=== PATIENT | female | born 1940 | race Caucasian/White ===

== ENCOUNTER → 2019-08-21 15:57 | Outpatient (CLI) | payer MEDICARE, BC, SELFPAY ==
[2019-08-21 18:16] LABS: Free T3, Triiodothyronine Free 2.78 pg/mL (2.77-5.27); Free T4, Direct Thyroxine 1.27 ng/dL (0.78-2.19)
[2019-08-21 18:29] LABS: Thyroid Stimulating Hormone 0.43 uIU/mL (0.47-4.68)
== END ==
PROVIDERS: Visit Provider Nurse Practitioner
DX: E03.9 Hypothyroidism, unspecified (principal); Z79.899 Other long term (current) drug therapy
CPT/HCPCS: 36415; 84439; 84443; 84481

== ENCOUNTER → 2020-04-24 12:25 | Outpatient (CLI) | payer MEDICARE, BC, SELFPAY ==
[2020-04-24 13:41] LABS: Alanine Aminotransferase 20 IU/L (<35); Albumin 4.4 g/dL (3.5-5.0); Albumin Globulin Ratio 1.3 (1.0-2.8); Alkaline Phosphatase 90 U/L (38-126); Aspartate Aminotransferase 26 IU/L (14-36); BUN Creatinine Ratio 14.4 (6-22); Bilirubin Total 0.5 mg/dL (0.2-1.3); Blood Urea Nitrogen 13 mg/dL (7-17); Calcium 10.1 mg/dL (8.4-10.2); Carbon Dioxide 29 mmol/L (22-32); Chloride 103 mmol/L (98-107); Cholesterol 190 mg/dL (140-199); Estimated Glomerular Filt Rate > 60.0 mL/min (>60); Globulin 3.4 g/dL (1.7-4.1); Glucose 95 mg/dL (80-110); HDL Cholesterol 47 mg/dL (40-60); HEMOLYSIS < 15 (0-50); LDL Cholesterol Calculated 110 mg/dL (<100); Potassium 4.4 mmol/L (3.4-5.1); Sodium 140 mmol/L (137-145); Total Protein 7.8 g/dL (6.3-8.2); Triglycerides 163 mg/dL (35-150)
[2020-04-24 14:04] LABS: Free T3, Triiodothyronine Free 2.83 pg/mL (2.77-5.27); Free T4, Direct Thyroxine 1.36 ng/dL (0.78-2.19)
[2020-04-24 14:18] LABS: Thyroid Stimulating Hormone 0.53 uIU/mL (0.47-4.68)
== END ==
PROVIDERS: Referring Provider Nurse Practitioner; Visit Provider Nurse Practitioner
DX: E03.9 Hypothyroidism, unspecified (principal); E66.3 Overweight; E78.5 Hyperlipidemia, unspecified; I10 Essential (primary) hypertension; Z79.899 Other long term (current) drug therapy
CPT/HCPCS: 80053; 80061; 84439; 84443; 84481

== ENCOUNTER → 2020-06-07 10:19 | Outpatient (CLI) | payer MEDICARE, BC, SELFPAY ==
--- NOTE | 2020-06-07 10:21 | DI.MG.S_ITS ---
BILATERAL DIGITAL SCREENING MAMMOGRAM 3D/2D WITH CAD: 06/07/2020 CLINICAL: Routine screening. Family history of breast cancer. Comparison is made to exams dated: 05/05/2018 mammogram, 03/30/2017 mammogram, and 03/12/2016 mammogram - [facility]. There are scattered fibroglandular elements in both breasts. Current study was also evaluated with a Computer Aided Detection (CAD) system. There are grouped fine calcifications in the left breast anterior depth central to the nipple seen on the craniocaudal view only. No other significant masses, calcifications, or other findings are seen in either breast. IMPRESSION: INCOMPLETE: NEEDS ADDITIONAL IMAGING EVALUATION The grouped fine calcifications in the left breast are indeterminate. Spot magnification and additional views are recommended. This exam was interpreted at Station ID: [id number]. NOTE: For mammograms, a report in lay terms will be sent to the patient. Approximately 15% of breast malignancies will not be visualized mammographically. In the management of a palpable breast mass, a negative mammogram must not discourage biopsy of a clinically suspicious lesion. Electronically Signed By: Dottie nicholson/:06/07/2020 12:16:06 letter sent: Additional Imaging Needed ACR BI-RADS Category 0: Incomplete 3340F
== END ==
PROVIDERS: PCP Nurse Practitioner; Referring Provider Nurse Practitioner; Visit Provider Nurse Practitioner
DX: Z12.31 Encounter for screening mammogram for malignant neoplasm of breast (principal); Z80.3 Family history of malignant neoplasm of breast
CPT/HCPCS: 77063; 77067

== ENCOUNTER → 2020-06-13 12:45 | Outpatient (CLI) | payer MEDICARE, BC, SELFPAY | PROVIDERS: PCP Nurse Practitioner; Referring Provider Nurse Practitioner; Visit Provider Nurse Practitioner | DX: E07.9 Disorder of thyroid, unspecified (principal); Z78.0 Asymptomatic menopausal state | CPT/HCPCS: 77080 ==

== ENCOUNTER → 2020-07-03 12:41 | Outpatient (CLI) | payer MEDICARE, BC, SELFPAY ==
--- NOTE | 2020-07-03 12:42 | DI.MG.S_ITS ---
UNILATERAL LEFT DIGITAL DIAGNOSTIC MAMMOGRAM 3D/2D WITH ADDITIONAL VIEWS: 07/03/2020 CLINICAL: Additional evaluation requested from prior study. Comparison is made to exams dated: 06/07/2020 mammogram - [facility], 05/05/2018 mammogram, and 03/30/2017 mammogram - [facility]. There are scattered fibroglandular elements in left breast. There are benign diffuse punctate calcifications in the left breast. No significant masses, calcifications, or other findings are seen in the breast. IMPRESSION: BENIGN There is no mammographic evidence of malignancy. A 1 year screening mammogram is recommended. This exam was interpreted at Station ID: [id number]. NOTE: For mammograms, a report in lay terms will be sent to the patient. Approximately 15% of breast malignancies will not be visualized mammographically. In the management of a palpable breast mass, a negative mammogram must not discourage biopsy of a clinically suspicious lesion. Electronically Signed By: Clark ku/lee:07/03/2020 13:18:36 letter sent: Normal Exam ACR BI-RADS Category 2: Benign Finding(s) 3342F
== END ==
PROVIDERS: PCP Nurse Practitioner; Referring Provider Nurse Practitioner; Visit Provider Nurse Practitioner
DX: R92.8 Other abnormal and inconclusive findings on diagnostic imaging of breast (principal)
CPT/HCPCS: 77065; G0279

== ENCOUNTER → 2021-05-20 14:21 | Outpatient (CLI) | payer MEDICARE, BC, SELFPAY ==
[2021-05-20 15:04] LABS: Creatinine Urine Random 186.3 mg/dL
[2021-05-20 15:08] LABS: Microalbumi Creatinin Ratio Ur 11.2 ug/mg CR (<30); Microalbumin Urine Random 2.1 mg/dL (0-1.6)
[2021-05-20 15:41] LABS: Alanine Aminotransferase 21 IU/L (<35); Albumin 4.1 g/dL (3.5-5.0); Albumin Globulin Ratio 1.5 (1.0-2.8); Alkaline Phosphatase 79 U/L (38-126); Aspartate Aminotransferase 25 IU/L (14-36); BUN Creatinine Ratio 16.1 (6-22); Bilirubin Total 0.5 mg/dL (0.2-1.3); Blood Urea Nitrogen 14 mg/dL (7-17); Calcium 9.7 mg/dL (8.4-10.2); Carbon Dioxide 24 mmol/L (22-32); Chloride 104 mmol/L (98-107); Cholesterol 159 mg/dL (140-199); Estimated Glomerular Filt Rate > 60.0 mL/min (>60); Globulin 2.8 g/dL (1.7-4.1); Glucose 100 mg/dL (80-110); HDL Cholesterol 53 mg/dL (40-60); HEMOLYSIS < 15 (0-50); LDL Cholesterol Calculated 74 mg/dL (<100); Sodium 139 mmol/L (137-145); Total Protein 6.9 g/dL (6.3-8.2); Triglycerides 160 mg/dL (35-150)
[2021-05-20 16:07] LABS: Thyroid Stimulating Hormone 1.87 uIU/mL (0.47-4.68)
== END ==
PROVIDERS: PCP Nurse Practitioner; Referring Provider Nurse Practitioner; Visit Provider Nurse Practitioner
DX: E03.9 Hypothyroidism, unspecified (principal); E78.5 Hyperlipidemia, unspecified; I10 Essential (primary) hypertension; Z79.899 Other long term (current) drug therapy
CPT/HCPCS: 36415; 80053; 80061; 82043; 82570; 84443

== ENCOUNTER → 2021-08-15 14:45 | Outpatient (CLI) | payer MEDICARE, BC, SELFPAY ==
--- NOTE | 2021-08-15 14:47 | DI.MG.S_ITS ---
BILATERAL DIGITAL SCREENING MAMMOGRAM 3D/2D WITH CAD: 08/15/2021 CLINICAL: Routine screening. Family history of breast cancer. Comparison is made to exams dated: 07/03/2020 mammogram, 06/07/2020 mammogram - [facility], and 05/05/2018 mammogram - [facility]. There are scattered fibroglandular elements in both breasts. Current study was also evaluated with a Computer Aided Detection (CAD) system. There are benign diffuse calcifications in the left breast. No significant masses, calcifications, or other findings are seen in either breast. There has been no significant interval change. IMPRESSION: BENIGN There is no mammographic evidence of malignancy. A 1 year screening mammogram is recommended. This exam was interpreted at Station ID: [id number]. NOTE: For mammograms, a report in lay terms will be sent to the patient. Approximately 15% of breast malignancies will not be visualized mammographically. In the management of a palpable breast mass, a negative mammogram must not discourage biopsy of a clinically suspicious lesion. Electronically Signed By: Mark Deras M.D., jr/lee:08/15/2021 15:20:29 letter sent: Normal Exam ACR BI-RADS Category 2: Benign Finding(s) 3342F
== END ==
PROVIDERS: PCP Nurse Practitioner; Referring Provider Nurse Practitioner; Visit Provider Nurse Practitioner
DX: Z12.31 Encounter for screening mammogram for malignant neoplasm of breast (principal)
CPT/HCPCS: 77063; 77067

== ENCOUNTER → 2022-09-18 11:19 | Outpatient (CLI) | payer MEDICARE, BC, SELFPAY ==
--- NOTE | 2022-09-18 11:22 | DI.MG.S_ITS ---
BILATERAL DIGITAL SCREENING MAMMOGRAM 3D/2D WITH CAD: 09/18/2022 CLINICAL: Routine screening. Family history of breast cancer. Comparison is made to exams dated: 08/15/2021 mammogram, 06/07/[address] - [facility], 05/05/2018 mammogram, 03/30/2017 mammogram, and 03/12/2016 mammogram - [facility]. There are scattered areas of fibroglandular density in both breasts (category b / 25%-50% glandular tissue). Current study was also evaluated with a Computer Aided Detection (CAD) system. There are benign diffuse calcifications in the left breast. No significant masses, calcifications, or other findings are seen in either breast. There has been no significant interval change. IMPRESSION: BENIGN There is no mammographic evidence of malignancy. A 1 year screening mammogram is recommended. Based on the Tyrer Cuzick model (a risk assessment model) the patient's lifetime risk is 0.9% and her 10 year risk is 0.0%. According to the ACR, ACS, and NCCN guidelines, an annual breast MRI exam along with mammogram is recommended if the patient's lifetime risk is 20% or greater. This exam was interpreted at Station ID: [id number]. NOTE: For mammograms, a report in lay terms will be sent to the patient. Approximately 15% of breast malignancies will not be visualized mammographically. In the management of a palpable breast mass, a negative mammogram must not discourage biopsy of a clinically suspicious lesion. Electronically Signed By: Johnathan busch/lee:09/18/2022 12:21:34 letter sent: Normal Exam ACR BI-RADS Category 2: Benign Finding(s) 3342F
== END ==
PROVIDERS: PCP Nurse Practitioner; Referring Provider Nurse Practitioner; Visit Provider Nurse Practitioner
DX: Z12.31 Encounter for screening mammogram for malignant neoplasm of breast (principal); Z80.3 Family history of malignant neoplasm of breast
CPT/HCPCS: 77063; 77067

== ENCOUNTER → 2022-12-14 11:05 | Outpatient (CLI) | payer MEDICARE, BC, SELFPAY ==
[2022-12-14 12:00] LABS: Hematocrit 39.7 % (36-46); Mean Corpuscular HGB Conc 32.7 % (30-36); Mean Corpuscular Volume 94.8 fL (80-100); Platelet Count 299 X10^3/uL (150-400); Red Blood Cell Count 4.19 X10^6/uL (4.0-5.2); Red Cell Distribution Width 13.3 % (11.6-14.8); White Blood Cell Count 6.6 X10^3/uL (4.5-11.0)
[2022-12-14 12:01] LABS: Alanine Aminotransferase 20 IU/L (<35); Alkaline Phosphatase 94 U/L (38-126); Aspartate Aminotransferase 22 IU/L (14-36); BUN Creatinine Ratio 19.1 (6-22); Bilirubin Total 0.6 mg/dL (0.2-1.3); Blood Urea Nitrogen 17 mg/dL (7-17); Calcium 9.3 mg/dL (8.4-10.2); Carbon Dioxide 26 mmol/L (22-32); Chloride 103 mmol/L (98-107); Cholesterol 168 mg/dL (140-199); Estimated Glomerular Filt Rate > 60 mL/min (>60); Glucose 89 mg/dL (80-110); HDL Cholesterol 51 mg/dL (40-60); HEMOLYSIS < 15 (0-50); LDL Cholesterol Calculated 95 mg/dL (<100); Potassium 4.3 mmol/L (3.4-5.1); Sodium 137 mmol/L (137-145); Total Protein 7.4 g/dL (6.3-8.2); Triglycerides 112 mg/dL (35-150)
[2022-12-14 12:32] LABS: Thyroid Stimulating Hormone 0.578 uIU/mL (0.47-4.68)
[2022-12-14 12:49] LABS: Vitamin B12 > 1000 pg/mL (239-931)
[2022-12-18 15:48] LABS: Albumin 4.1 g/dL (3.5-5.0); Albumin Globulin Ratio 1.2 (1.0-2.8); Globulin 3.3 g/dL (1.7-4.1)
== END ==
PROVIDERS: PCP Nurse Practitioner; Referring Provider Nurse Practitioner; Visit Provider Nurse Practitioner
DX: E03.9 Hypothyroidism, unspecified (principal); E78.2 Mixed hyperlipidemia; I10 Essential (primary) hypertension; Z79.899 Other long term (current) drug therapy; R53.83 Other fatigue
CPT/HCPCS: 36415; 80053; 80061; 82607; 84443; 85027

== ENCOUNTER → 2022-12-15 13:26 | Outpatient (CLI) | payer MEDICARE, BC, SELFPAY ==
[2022-12-15 16:24] LABS: Creatinine Urine Random 194.8 mg/dL
[2022-12-15 16:26] LABS: Microalbumi Creatinin Ratio Ur 15.4 ug/mg CR (<30)
== END ==
PROVIDERS: PCP Nurse Practitioner; Referring Provider Nurse Practitioner; Visit Provider Nurse Practitioner
DX: I10 Essential (primary) hypertension (principal)
CPT/HCPCS: 82043; 82570

== ENCOUNTER → 2022-12-18 12:45 | Outpatient (CLI) | payer MEDICARE, BC, SELFPAY | PROVIDERS: PCP Nurse Practitioner; Referring Provider Nurse Practitioner; Visit Provider Nurse Practitioner | DX: M85.851 Other specified disorders of bone density and structure, right thigh (principal); M85.852 Other specified disorders of bone density and structure, left thigh; Z13.820 Encounter for screening for osteoporosis; M06.9 Rheumatoid arthritis, unspecified; Z78.0 Asymptomatic menopausal state; Z90.710 Acquired absence of both cervix and uterus; Z92.23 Personal history of estrogen therapy | CPT/HCPCS: 77080 ==

== ENCOUNTER → 2023-10-06 12:49 | Outpatient (CLI) | payer MEDICARE, BC, SELFPAY ==
--- NOTE | 2023-10-06 12:51 | DI.MG.S_ITS ---
BILATERAL DIGITAL SCREENING MAMMOGRAM 3D/2D WITH CAD: 10/06/2023 CLINICAL: Routine screening. Family history of breast cancer. Comparison is made to exams dated: 09/18/2022 mammogram, 08/15/2021 mammogram, 06/07/2020 mammogram - [facility], and 05/05/2018 mammogram - [facility]. There are scattered areas of fibroglandular density in both breasts (category b / 25%-50% glandular tissue). Current study was also evaluated with a Computer Aided Detection (CAD) system. No significant masses, calcifications, or other findings are seen in either breast. There has been no significant interval change. IMPRESSION: NEGATIVE There is no mammographic evidence of malignancy. A 1 year screening mammogram is recommended. Based on the Tyrer Cuzick model (a risk assessment model) the patient's lifetime risk is 0.6% and her 10 year risk is 0.0%. According to the ACR, ACS, and NCCN guidelines, an annual breast MRI exam along with mammogram is recommended if the patient's lifetime risk is 20% or greater. This exam was interpreted at Station ID: [id number]. NOTE: For mammograms, a report in lay terms will be sent to the patient. Approximately 15% of breast malignancies will not be visualized mammographically. In the management of a palpable breast mass, a negative mammogram must not discourage biopsy of a clinically suspicious lesion. Electronically Signed By: Johnathan busch/lee:10/06/2023 13:59:26 letter sent: Normal Exam ACR BI-RADS Category 1: Negative 3341F
== END ==
PROVIDERS: PCP Nurse Practitioner; Referring Provider Nurse Practitioner; Visit Provider Nurse Practitioner
DX: Z12.31 Encounter for screening mammogram for malignant neoplasm of breast (principal); Z80.3 Family history of malignant neoplasm of breast
CPT/HCPCS: 77063; 77067

== ENCOUNTER → 2023-12-17 11:43 | Outpatient (CLI) | payer MEDICARE, BC, SELFPAY ==
[2023-12-17 13:27] LABS: Alanine Aminotransferase 20 IU/L (<35); Albumin 4.1 g/dL (3.5-5.0); Albumin Globulin Ratio 1.4 (1.0-2.8); Alkaline Phosphatase 80 U/L (38-126); Aspartate Aminotransferase 24 IU/L (14-36); BUN Creatinine Ratio 23.2 (6-22); Bilirubin Total 0.6 mg/dL (0.2-1.3); Blood Urea Nitrogen 23 mg/dL (7-17); Calcium 9.9 mg/dL (8.4-10.2); Carbon Dioxide 26 mmol/L (22-32); Chloride 103 mmol/L (98-107); Cholesterol 164 mg/dL (140-199); Estimated Glomerular Filt Rate 57 mL/min (>60); Globulin 2.9 g/dL (1.7-4.1); Glucose 92 mg/dL (80-110); HDL Cholesterol 47 mg/dL (40-60); HEMOLYSIS < 15 (0-50); LDL Cholesterol Calculated 89 mg/dL (<100); Potassium 4.3 mmol/L (3.4-5.1); Sodium 138 mmol/L (137-145); Triglycerides 142 mg/dL (35-150)
[2023-12-17 13:50] LABS: Thyroid Stimulating Hormone 1.61 uIU/mL (0.47-4.68)
== END ==
PROVIDERS: PCP Nurse Practitioner; Referring Provider Nurse Practitioner; Visit Provider Nurse Practitioner
DX: E03.9 Hypothyroidism, unspecified (principal); M85.80 Other specified disorders of bone density and structure, unspecified site; I10 Essential (primary) hypertension; E78.5 Hyperlipidemia, unspecified; Z79.899 Other long term (current) drug therapy
CPT/HCPCS: 36415; 80053; 80061; 84443

== ENCOUNTER → 2023-12-18 09:50 | Outpatient (CLI) | payer MEDICARE, BC, SELFPAY ==
[2023-12-18 12:11] LABS: Creatinine Urine Random 120.2 mg/dL
[2023-12-18 12:15] LABS: Microalbumin Urine Random < 0.6 mg/dL (0-1.6)
== END ==
PROVIDERS: PCP Nurse Practitioner; Referring Provider Nurse Practitioner; Visit Provider Nurse Practitioner
DX: M85.80 Other specified disorders of bone density and structure, unspecified site (principal); E03.9 Hypothyroidism, unspecified; I10 Essential (primary) hypertension; E78.5 Hyperlipidemia, unspecified; Z79.899 Other long term (current) drug therapy
CPT/HCPCS: 82043; 82570

== ENCOUNTER → 2024-12-27 14:00 | Outpatient (CLI) | payer MEDICARE, BC, SELFPAY ==
[2024-12-27 14:35] LABS: Add Manual Diff / Slide Review NO; Basophils Absolute Auto 100 /uL (0-100); Eosinophils Absolute Auto 200 /uL (0-450); Eosinophils Percent Auto 2.8 % (2-4); Hematocrit 37.6 % (36-46); Hemoglobin 12.5 g/dL (12.0-16.0); Lymphocytes Absolute Auto 2300 /uL (1100-4500); Mean Corpuscular HGB Conc 33.3 % (30-36); Mean Corpuscular Volume 93.1 fL (80-100); Monocytes Absolute Auto 800 /uL (0-900); Monocytes Percent Auto 11.3 % (3-14); Neutrophils Absolute Auto 3600 /uL (1500-7000); Neutrophils Percent Auto 51.9 % (50-75); Platelet Count 315 X10^3/uL (150-400); Red Blood Cell Count 4.04 X10^6/uL (4.0-5.2); Red Cell Distribution Width 12.9 % (11.6-14.8); White Blood Cell Count 6.9 X10^3/uL (4.5-11.0)
[2024-12-27 15:19] LABS: BUN Creatinine Ratio 24.1 (6-22); Blood Urea Nitrogen 27 mg/dL (7-17); Calcium 9.8 mg/dL (8.4-10.2); Carbon Dioxide 27 mmol/L (22-32); Chloride 100 mmol/L (98-107); Cholesterol 187 mg/dL (140-199); Estimated Glomerular Filt Rate 48 mL/min (>60); Glucose 95 mg/dL (80-110); HDL Cholesterol 44 mg/dL (40-60); HEMOLYSIS < 15 (0-50); LDL Cholesterol Calculated 103 mg/dL (<100); Potassium 4.8 mmol/L (3.4-5.1); Sodium 136 mmol/L (137-145); Triglycerides 199 mg/dL (35-150)
[2024-12-27 15:54] LABS: TSH w/ Reflex to FT4 1.92 uIU/mL (0.47-4.68)
== END ==
PROVIDERS: PCP Nurse Practitioner Family; Referring Provider Nurse Practitioner Family; Visit Provider Nurse Practitioner Family
DX: E03.9 Hypothyroidism, unspecified (principal); I10 Essential (primary) hypertension; E78.5 Hyperlipidemia, unspecified
CPT/HCPCS: 36415; 80048; 80061; 84443; 85025

== ENCOUNTER 2025-09-26 03:45 | Inpatient (IN) | payer MEDICARE, BC, SELFPAY ==
[2025-09-26 03:53] VITALS: BP 188/73; PULSE 76; RESP 18; TEMP 36.4; O2SAT 97; BMI 29.0
--- NOTE | 2025-09-26 04:16 | ED.ABDPAIN ---
HPI - Abdominal Pain General Chief Complaint: Abdominal Pain Stated Complaint: Abdominal Pain Time Seen by Provider: 09/26/25 03:56 Source: patient and EMS Mode of arrival: EMS History of Present Illness HPI narrative: 85-year-old female who has been dealing some low back bilateral pain that started around midnight and now she is having some centralized abdominal pain along with it. Is not cramping or dull or sharp it just hurts according to the patient. No or other GI symptoms no hematuria no dysuria no melena. Related Data Previous Rx's ?Medication ?Instructions ?Recorded atorvastatin 40 mg tablet See Rx Instructions .Route 01/08/25 .COMPLEX #90 tabs levothyroxine 50 mcg tablet See Rx Instructions .Route 01/08/25 .COMPLEX #90 tabs bisoprolol 2.5 See Rx Instructions .Route 01/15/25 mg-hydrochlorothiazide 6.25 mg .COMPLEX #90 tabs tablet Allergies Allergy/AdvReac Type Severity Reaction Status Date / Time Sulfa (Sulfonamide Allergy Mild Verified 01/18/25 14:00 Antibiotics) Sulfur AdvReac Intermediate Face Uncoded 01/18/25 14:00 swelling, Reaction to med. Review of Systems Review of Systems ROS Unobtainable: All systems reviewed & are unremarkable except as noted in HPI and below Patient History Medical History Osteopenia determined by x-ray Ankle pain (~2016) Mumps Measles History of chicken pox Family history of colon cancer Family history of breast cancer Family history of stroke Family history of hypertension Family history of diabetes mellitus History of uterine fibroid History of hemorrhoids Hypothyroidism Actinic keratitis Hypertension Vitamin D deficiency Cobalamin deficiency Vitamin B-complex deficiency Hypothyroidism Surgical History History of cosmetic surgery (~1991) History of tonsillectomy (~1957) History of hysterectomy (~1997) Family History Father History of heart attack Stroke Mother Stroke Diabetes mellitus Hypertension Hyperlipidemia Sister COPD (chronic obstructive pulmonary disease) Breast cancer in female Daughter Cancer Social History marital status: number of children: 2 household members: children lives independently: Yes caregiver/support person: Yes pets and animals: Yes (Cat-Stormy) education level: other occupational status: other current occupational exposures/hazards: No rik/restorationism: Worship/[employer] special rik needs: No travel history: recent leisure activities: games and reading other: Playing cards seatbelt use: always helmet use: No water heater temp set < 120 deg: Yes working smoke detector in home: Yes carbon monox detector in home: Yes firearms in home: No do you feel safe at home: Yes Smoking Status: Never smoker second hand exposure: No (In the past.) alcohol intake: current substance use type: does not use during the past year weight has: remained stable well-balanced diet: about half the time daily servings fruits/ve-4 caffeine: Yes (2+ drinks per day, 1-2 soda/pop drinks per day) eating out: 1-3 times/week Type(s) of exercise: occasional exercise frequency: 1-2 times per week duration: 45-60 minutes/day additional social history: Travel History: [facility], [place], [place]. Smoking Status: Never smoker Exam Narrative Exam Narrative: General: Patient appears to be in no acute distress, acting appropriately Head: normocephalic, atraumatic, HEENT: Pupils equal round reactive, eyes tracking well, neck supple, no JVD Heart: regular rate and rhythm, no murmurs, rubs, or gallops heard Lungs: clear to auscultation, no adventitious sounds Abdomen: soft , tenderness to palpation around the center of her abdomen. Nondistended, positive bowel sounds Neurological: no focal neurological signs, moving all extremities well, alert and oriented x3, Psych: good judgment ,good insight, mood is normal. back: Pain with palpation around bilateral lower back region. Initial Vital Signs Initial Vital Signs: Vital Signs Temperature 97.5 F L 09/26/25 03:53 Pulse Rate 76 09/26/25 03:53 Respiratory Rate 18 09/26/25 03:53 Blood Pressure 188/73 H 09/26/25 03:53 Pulse Oximetry 97 09/26/25 03:53 Oxygen Delivery Method Room Air 09/26/25 03:53 Course Orders Ordered: ED Orders 09/26/25 03:45 Complete Blood Count AUTO DIFF Stat Comprehensive Metabolic Panel Stat Lipase Stat 09/26/25 04:18 CT abdomen pelvis wo con Stat 09/26/25 04:19 EKG-12 Lead Stat Discontinued Medications Morphine Sulfate (Morphine 2 Mg/Ml Inj) 2 mg IV NOW ONE Stop: 09/26/25 04:17 Morphine Sulfate (Morphine 2 Mg/Ml Inj) 4 mg 0.05 mg/kg (4 mg) IV NOW ONE Stop: 09/26/25 04:23 Morphine Sulfate (Morphine 4 Mg/Ml Inj) 2 mg IV NOW ONE Stop: 09/26/25 04:24 Last Admin: 09/26/25 04:29 Dose: 2 mg Documented By: AN Morphine Sulfate (Morphine 2 Mg/Ml Inj) 2 mg IV NOW ONE Stop: 09/26/25 06:09 Morphine Sulfate (Morphine 2 Mg/Ml Inj) 2 mg IV NOW ONE Stop: 09/26/25 06:15 Morphine Sulfate (Morphine 4 Mg/Ml Inj) 2 mg IV NOW ONE Stop: 09/26/25 06:31 Ondansetron HCl (Ondansetron 4 Mg/2 Ml Inj) 4 mg IV NOW ONE Stop: 09/26/25 04:17 Last Admin: 09/26/25 04:29 Dose: 4 mg Documented By: NA Ondansetron HCl (Ondansetron 4 Mg/2 Ml Inj) 4 mg IV NOW ONE Stop: 09/26/25 06:17 Reevaluation(s) Reevaluation #1: Patient is still a bit uncomfortable after morphine and Zofran given Consultations Consultation #1: General surgery Dr Evans consulted who felt that she could be admitted by the medicine team and consulted. Time: 06:28 Consultation #2: Hospitalist Dr. Watson consulted who will admit the patient Time: 06:28 Vital Signs Vital signs: Vital Signs - 8 hr 09/26/25 03:53 09/26/25 05:04 Temperature 97.5 F L Pulse Rate 76 72 Respiratory Rate 18 15 Blood Pressure 188/73 H 146/62 H Pulse Oximetry 97 97 Oxygen Delivery Method Room Air Room Air MDM - Abdominal Pain Lab Data 09/26/25 03:45 09/26/25 03:45 Labs: Lab Results 09/26/25 Range/Units 03:45 WBC 7.2 (4.5-11.0) X10^3/uL RBC 4.44 (4.0-5.2) X10^6/uL Hgb 13.6 (12.0-16.0) g/dL Hct 41.0 (36-46) % MCV 92.2 (80-100) fL MCH 30.6 (26-34) PG MCHC 33.1 (30-36) % RDW 13.5 (11.6-14.8) % Plt Count 316 (150-400) X10^3/uL Neut % (Auto) 57.0 (50-75) % Lymph % (Auto) 30.4 (25-40) % [place] % (Auto) 9.3 (3-14) % Eos % (Auto) 2.0 (2-4) % Baso % (Auto) 1.3 (0-2) % Neut # (Auto) 4100 (5017-9141) /uL Lymph # (Auto) 2200 (5569-6056) /uL [place] # (Auto) 700 (0-900) /uL Eos # (Auto) 100 (0-450) /uL Baso # (Auto) 100 (0-100) /uL Sodium 136 L (137-145) mmol/L Potassium 3.7 (3.4-5.1) mmol/L Chloride 99 (98-107) mmol/L Carbon Dioxide 27 (22-32) mmol/L BUN 21 H (7-17) mg/dL Creatinine 0.96 (0.52-1.04) mg/dL Estimated GFR 58 L (>60) mL/min BUN/Creatinine Ratio 21.9 (6-22) Glucose 121 H (70-99) mg/dL Calcium 9.2 (8.4-10.2) mg/dL Total Bilirubin 0.4 (0.2-1.3) mg/dL AST 29 (14-36) IU/L ALT 24 (<35) IU/L Alkaline Phosphatase 96 (38-126) U/L Total Protein 7.9 (6.3-8.2) g/dL Albumin 4.6 (3.5-5.0) g/dL Globulin 3.3 (1.7-4.1) g/dL Albumin/Globulin Ratio 1.4 (1.0-2.8) Lipase 124 (23-300) U/L Imaging Data CT scan - abdomen/pelvis: Radiologist's Impression: Dilated fluid filled loops of small bowel throughout the abdomen. Compatible with small bowel enteritis with ileus versus partial distal small-bowel obstruction. Findings may be infectious or inflammatory. However there is suggestion of pneumatosis. MDM Narrative Medical decision making narrative: 85-year-old female who has been having some lower back pain that radiated and eventually centralized abdominal pain that has been worsening in the last 4-5 hours. Has been associated some nausea and vomiting. CT abdomen was compatible with small bowel enteritis with ileus versus partial distal small-bowel obstruction. General surgery consulted who advised to admit the patient through the medicine team and will be consulted. Patient will be observed for any further symptoms or worsening obstruction. No reason for antibiotics at this time as patient has no sign of sepsis or other obvious infectious source. Discharge Plan Departure Patient Disposition: Admitted as Observation Clinical Impression: Partial small bowel obstruction Admit Date/Time: 09/26/25 06:26 Admit Provider: Kj Watson
--- NOTE | 2025-09-26 04:18 | DI.CT.S_ITS ---
[id number] hiatal hernia. Chest: No significant findings. ABDOMEN: Liver: No contour-deforming mass. Gallbladder: No radiopaque gallstones or wall thickening. Biliary ducts: No biliary dilation. Pancreas: No ductal dilation. Spleen: Size is within normal limits. Adrenal Glands: No adrenal nodules. Kidneys and Ureters: No hydronephrosis. No contour-deforming mass. Stomach and Bowel: Jejunal loops are borderline dilated measuring up to 3.0 cm in diameter. Reference image 58 of series 2. Possible pneumatosis. More likely, there is near complete filling of the bowel loops with fluid with minimal residual air present along the wall of the small bowel loops. Distal jejunal or proximal ileal loops measure up to 2.9 cm in diameter. More distally, the ileum has a normal caliber. Consider enteritis with ileus. Consider partial small bowel obstruction. Peritoneum: No abnormal intraperitoneal fluid. No free air. Ventral Wall: No significant hernia. Abdominal Nodes: No retroperitoneal or mesenteric adenopathy by size criteria. Vessels: Aorta and inferior vena cava are normal in size. PELVIS: Pelvic Organs: Uterus is surgically absent. No adnexal masses.. Bladder: Unremarkable. Pelvic Nodes: No enlarged lymph nodes. Miscellaneous: No inguinal hernias are seen. Bones: No aggressive osseous abnormality. IMPRESSION: 1. There is an acute process involving the small bowel. Consider enteritis with mild ileus. Consider possible earlier partial small bowel obstruction. There is a question of proximal small bowel pneumatosis. However, this is felt unlikely to be the case. Recommend clinical correlation and imaging follow-up. 2. Akgk-ss-dbtchcha hiatal hernia. 3. Remote hysterectomy. Comment: Final report is concordant with preliminary interpretation provided by [facility]. Dictated by: Sorin Larios M.D. on 09/26/2025 at 7:58 Approved by: Sorin Larios M.D. on 09/26/2025 at 8:04
--- NOTE | 2025-09-26 04:28 | EKG_ITS ---
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
[2025-09-26] MEDS: MORPHINE 4 MG/ML INJ 2 MG IV ×2 (04:29→06:44)
[2025-09-26] MEDS: ONDANSETRON 4 MG/2 ML INJ IV ×3 (04:29→13:24)
[2025-09-26 04:31] LABS: Add Manual Diff / Slide Review NO; Hematocrit 41.0 % (36-46); Hemoglobin 13.6 g/dL (12.0-16.0); Lymphocytes Absolute Auto 2200 /uL (1100-4500); Mean Corpuscular HGB Conc 33.1 % (30-36); Mean Corpuscular Hemoglobin 30.6 PG (26-34); Mean Corpuscular Volume 92.2 fL (80-100); Platelet Count 316 X10^3/uL (150-400)
[2025-09-26 04:38] LABS: Alanine Aminotransferase 24 IU/L (<35); Albumin 4.6 g/dL (3.5-5.0); Albumin Globulin Ratio 1.4 (1.0-2.8); Alkaline Phosphatase 96 U/L (38-126); Blood Urea Nitrogen 21 mg/dL (7-17); Calcium 9.2 mg/dL (8.4-10.2); Carbon Dioxide 27 mmol/L (22-32); Chloride 99 mmol/L (98-107); Estimated Glomerular Filt Rate 58 mL/min (>60); Globulin 3.3 g/dL (1.7-4.1); Glucose 121 mg/dL (70-99); HEMOLYSIS < 15 (0-50); Lipase 124 U/L (23-300); Potassium 3.7 mmol/L (3.4-5.1); Sodium 136 mmol/L (137-145); Total Protein 7.9 g/dL (6.3-8.2)
[2025-09-26 05:04] VITALS: BP 146/62; PULSE 72; RESP 15; O2SAT 97
--- NOTE | 2025-09-26 06:30 | PM.HP.1 ---
History of Present Illness History of Present Illness Chief complaint: Abdominal Pain Narrative: 85F with PMH of HTN and hypothyroidism comes to ED with bilateral LBP since MN and central abdominal pain that is not sharp or crampy. There has been no dysuria, melena, diarrhea, constipation, nausea, vomiting, fever, chills, sweats, dyspnea. or cough. Labs were unremarkable. CT showed possible small bowel obstruction vs ileus but official radiology read is pending. ED attending spoke with on-call surgeon who will see patient but did not think NG tube placement was necessary at this time. [facility] Medical History Osteopenia determined by x-ray Ankle pain (~2016) Mumps Measles History of chicken pox Family history of colon cancer Family history of breast cancer Family history of stroke Family history of hypertension Family history of diabetes mellitus History of uterine fibroid History of hemorrhoids Hypothyroidism Actinic keratitis Hypertension Vitamin D deficiency Cobalamin deficiency Vitamin B-complex deficiency Hypothyroidism Surgical History History of cosmetic surgery (~1991) History of tonsillectomy (~1957) History of hysterectomy (~1997) Family History Father History of heart attack Stroke Mother Stroke Diabetes mellitus Hypertension Hyperlipidemia Sister COPD (chronic obstructive pulmonary disease) Breast cancer in female Daughter Cancer Social History marital status: number of children: 2 household members: children lives independently: Yes caregiver/support person: Yes pets and animals: Yes (Cat-Stormy) education level: other occupational status: other current occupational exposures/hazards: No rik/sabianist: Presybeterian/Jew special rik needs: No travel history: recent leisure activities: games and reading other: Playing cards seatbelt use: always helmet use: No water heater temp set < 120 deg: Yes working smoke detector in home: Yes carbon monox detector in home: Yes firearms in home: No do you feel safe at home: Yes Smoking Status: Never smoker second hand exposure: No (In the past.) alcohol intake: current substance use type: does not use during the past year weight has: remained stable well-balanced diet: about half the time daily servings fruits/ve-4 caffeine: Yes (2+ drinks per day, 1-2 soda/pop drinks per day) eating out: 1-3 times/week Type(s) of exercise: occasional exercise frequency: 1-2 times per week duration: 45-60 minutes/day additional social history: Travel History: [facility] States- [place], [place], [place]. Meds Home Medications and Allergies Home Medications ?Medication ?Instructions ?Recorded ?Confirmed ?Type atorvastatin 40 mg tablet See Rx Instructions .Route 01/08/25 01/18/25 Rx .COMPLEX #90 tabs levothyroxine 50 mcg tablet See Rx Instructions .Route 01/08/25 01/18/25 Rx .COMPLEX #90 tabs bisoprolol 2.5 See Rx Instructions .Route 01/15/25 01/18/25 Rx mg-hydrochlorothiazide 6.25 mg .COMPLEX #90 tabs tablet Allergies Allergy/AdvReac Type Severity Reaction Status Date / Time Sulfa (Sulfonamide Allergy Mild Verified 01/18/25 14:00 Antibiotics) Sulfur AdvReac Intermediate Face Uncoded 01/18/25 14:00 swelling, Reaction to med. Review of Systems Review of Systems Narrative: As per HPI. Rest of 10-system review negative. Exam Vital Signs (past 8 hours): - 09/26/25 03:53 09/26/25 05:04 Temperature 97.5 F L Pulse Rate 76 72 Respiratory Rate 18 15 Blood Pressure 188/73 H 146/62 H Pulse Oximetry 97 97 Oxygen Delivery Method Room Air Room Air Oxygen Delivery Method Room Air Narrative Exam Narrative: To be done by day hospitalist. Objective Imaging CT scan - abdomen: My impression: sbo vs ileus Labs 09/26/25 03:45 09/26/25 03:45 Labs: Laboratory Results - last 24 hr 09/26/25 03:45 WBC 7.2 RBC 4.44 Hgb 13.6 Hct 41.0 MCV 92.2 MCH 30.6 MCHC 33.1 RDW 13.5 Plt Count 316 Neut % (Auto) 57.0 Lymph % (Auto) 30.4 [place] % (Auto) 9.3 Eos % (Auto) 2.0 Baso % (Auto) 1.3 Neut # (Auto) 4100 Lymph # (Auto) 2200 [place] # (Auto) 700 Eos # (Auto) 100 Baso # (Auto) 100 Sodium 136 L Potassium 3.7 Chloride 99 Carbon Dioxide 27 BUN 21 H Creatinine 0.96 Estimated GFR 58 L BUN/Creatinine Ratio 21.9 Glucose 121 H Calcium 9.2 Total Bilirubin 0.4 AST 29 ALT 24 Alkaline Phosphatase 96 Total Protein 7.9 Albumin 4.6 Globulin 3.3 Albumin/Globulin Ratio 1.4 Lipase 124 Assessment & Plan Assessment and plan (1) Ileus, unspecified: Status: Acute Assessment & Plan narrative: 85F with <6 hour h/o bilateral low back pain and central abdominal pain 1. Small bowel obstruction vs ileus without N/V/D/C, POA 2. bilateral low back/flank pain without dysuria, POA 3. HTN 4. Hypothyroidism Plan: 1. Admit to observation 2. Surgeon to see 3. NPO, IV fluids, Hold off on NG tube for now per reported recommendation by surgery 4. check urinalysis 5. BMP, CBC, Mg at noon 6. Hold oral medications for now 7. APAP, Dilaudid, Zofran for pain and nausea Code: full Exam to be done by day hospitalist - communicated directly to day hospitalist through hospital-provided communication means. Time-Based Coding :: [TOTAL MINUTES] spent with patient and on the chart (including review of chart, obtaining history, exam, reviewing outside data, placing orders, documenting exam and treatment plan, and counseling patient) on [DATE].
--- NOTE | 2025-09-26 06:32 | PM.CN.IH.1 ---
History of Present Illness Consult details Date Patient Seen: 09/26/25 Time Patient Seen: 06:32 Chief complaint: Abdominal Pain Reason for consult: SBO vs ileus Requesting provider: Yoni Alcaraz Narrative: Surgery consult requested by ED. Patient being admitted to hospitalist service. 85yo F c/o abd pain, back pain. CT demonstrates ileus vs SBO. Review of CT images demonstrates mild small bowel dilation diffusely more consistent with ileus. Patient's daughter has stomach bug and patient now having similar symptoms, abd pain, vomiting. Denies blood in vomit or stool. Daily BM, denies constipation. Denies fever. WBC normal. +FH for colon cancer in her daughter, hasn't had colonoscopy in 20 years. Originally from [place]. Meds Home Medications and Allergies Home Medications ?Medication ?Instructions ?Recorded ?Confirmed ?Type atorvastatin 40 mg tablet See Rx Instructions .Route 01/08/25 01/18/25 Rx .COMPLEX #90 tabs levothyroxine 50 mcg tablet See Rx Instructions .Route 01/08/25 01/18/25 Rx .COMPLEX #90 tabs bisoprolol 2.5 See Rx Instructions .Route 01/15/25 01/18/25 Rx mg-hydrochlorothiazide 6.25 mg .COMPLEX #90 tabs tablet Allergies Allergy/AdvReac Type Severity Reaction Status Date / Time Sulfa (Sulfonamide Allergy Mild Verified 01/18/25 14:00 Antibiotics) Sulfur AdvReac Intermediate Face Uncoded 01/18/25 14:00 swelling, Reaction to med. Exam Vital Signs (past 8 hours): - 09/26/25 03:53 09/26/25 05:04 Temperature 97.5 F L Pulse Rate 76 72 Respiratory Rate 18 15 Blood Pressure 188/73 H 146/62 H Pulse Oximetry 97 97 Oxygen Delivery Method Room Air Room Air Oxygen Delivery Method Room Air Narrative Exam Narrative: Const General: uncomfortable Orientation: alert and oriented x3 Resp Effort & Inspection: normal respiratory effort and able to speak in complete sentences Cardio Rate: regular rate GI Palpation: soft, diffusely tender, non-peritoneal Extrem General: no pedal edema and no calf tenderness Objective Labs 09/26/25 03:45 09/26/25 03:45 Labs: Laboratory Results - last 24 hr 09/26/25 03:45 WBC 7.2 RBC 4.44 Hgb 13.6 Hct 41.0 MCV 92.2 MCH 30.6 MCHC 33.1 RDW 13.5 Plt Count 316 Neut % (Auto) 57.0 Lymph % (Auto) 30.4 [place] % (Auto) 9.3 Eos % (Auto) 2.0 Baso % (Auto) 1.3 Neut # (Auto) 4100 Lymph # (Auto) 2200 [place] # (Auto) 700 Eos # (Auto) 100 Baso # (Auto) 100 Sodium 136 L Potassium 3.7 Chloride 99 Carbon Dioxide 27 BUN 21 H Creatinine 0.96 Estimated GFR 58 L BUN/Creatinine Ratio 21.9 Glucose 121 H Calcium 9.2 Total Bilirubin 0.4 AST 29 ALT 24 Alkaline Phosphatase 96 Total Protein 7.9 Albumin 4.6 Globulin 3.3 Albumin/Globulin Ratio 1.4 Lipase 124 PFSH Medical History Osteopenia determined by x-ray Ankle pain (~2016) Mumps Measles History of chicken pox Family history of colon cancer Family history of breast cancer Family history of stroke Family history of hypertension Family history of diabetes mellitus History of uterine fibroid History of hemorrhoids Hypothyroidism Actinic keratitis Hypertension Vitamin D deficiency Cobalamin deficiency Vitamin B-complex deficiency Hypothyroidism Surgical History History of cosmetic surgery (~1991) History of tonsillectomy (~1957) History of hysterectomy (~1997) Family History Father History of heart attack Stroke Mother Stroke Diabetes mellitus Hypertension Hyperlipidemia Sister COPD (chronic obstructive pulmonary disease) Breast cancer in female Daughter Cancer Social History marital status: number of children: 2 household members: children lives independently: Yes caregiver/support person: Yes pets and animals: Yes (Cat-Stormy) education level: other occupational status: other current occupational exposures/hazards: No rik/yarsani: Jewish/Jewish special rik needs: No travel history: recent leisure activities: games and reading other: Playing cards Safety seatbelt use: always helmet use: No water heater temp set < 120 deg: Yes working smoke detector in home: Yes carbon monox detector in home: Yes firearms in home: No do you feel safe at home: Yes Tobacco & Substance Use Smoking Status: Never smoker second hand exposure: No (In the past.) alcohol intake: current substance use type: does not use Diet and Exercise during the past year weight has: remained stable well-balanced diet: about half the time daily servings fruits/ve-4 caffeine: Yes (2+ drinks per day, 1-2 soda/pop drinks per day) eating out: 1-3 times/week Type(s) of exercise: occasional exercise frequency: 1-2 times per week duration: 45-60 minutes/day Additional Social History additional social history: Travel History: [facility] [place], [place], [place]. Assessment & Plan Assessment and plan (1) Abdominal pain: Qualifiers: Abdominal location: generalized Qualified Code(s): R10.84 - Generalized abdominal pain Status: Acute Plan Abd pain, vomiting, unclear etiology Clinical picture c/w gastroenteritis CT images more consistent with ileus, not SBO Daughter had similar symptoms c/w viral gastroenteritis She needs to have screening colonoscopy after recovery, +FH Time-Based Coding :: [TOTAL MINUTES] spent with patient and on the chart (including review of chart, obtaining history, exam, reviewing outside data, placing orders, documenting exam and treatment plan, and counseling patient) on [DATE]. PROFEE Charge Codes Inpatient or Observation consultation: 88229
[2025-09-26 06:56] VITALS: BP 168/71; PULSE 70; RESP 14; O2SAT 96
[2025-09-26 07:55] VITALS: BP 132/78; PULSE 78; RESP 16; TEMP 36.2; O2SAT 98
[2025-09-26 08:30] VITALS: BMI 29.0
[2025-09-26] MEDS: SODIUM CHLORIDE 0.9% 1,000 ML 60 ML IV (08:39)
[2025-09-26 12:30] LABS: Add Manual Diff / Slide Review NO; Hematocrit 42.2 % (36-46); Hemoglobin 13.8 g/dL (12.0-16.0); Lymphocytes Absolute Auto 800 /uL (1100-4500); Mean Corpuscular HGB Conc 32.8 % (30-36); Mean Corpuscular Hemoglobin 30.3 PG (26-34); Mean Corpuscular Volume 92.6 fL (80-100); Platelet Count 321 X10^3/uL (150-400)
[2025-09-26 12:46] LABS: Blood Urea Nitrogen 21 mg/dL (7-17); Calcium 9.0 mg/dL (8.4-10.2); Carbon Dioxide 20 mmol/L (22-32); Chloride 102 mmol/L (98-107); Estimated Glomerular Filt Rate > 60 mL/min (>60); Glucose 150 mg/dL (70-99); HEMOLYSIS 87 (0-50); Magnesium 2.0 mg/dL (1.6-2.3); Potassium 4.2 mmol/L (3.4-5.1); Sodium 136 mmol/L (137-145)
[2025-09-26] MEDS: ACETAMINOPHEN 325 MG TABLET 650 MG PO (20:26)
[2025-09-26 21:43] VITALS: BP 128/81; PULSE 85; RESP 18; TEMP 37.1; O2SAT 96
[2025-09-27] MEDS: SODIUM CHLORIDE 0.9% 1,000 ML 60 ML IV ×2 (01:25→19:42)
[2025-09-27 05:14] VITALS: BP 132/67; PULSE 79; RESP 18; TEMP 37.1; O2SAT 95
--- NOTE | 2025-09-27 07:18 | P.PN_ITS ---
Subjective Subjective Date Patient Seen: 09/27/25 Time Patient Seen: 07:18 Interval history: Feels much better No n/v Small appetite Exam Vital Signs (past 8 hours): - 09/27/25 05:14 Temperature 98.7 F Pulse Rate 79 Respiratory Rate 18 Blood Pressure 132/67 Pulse Oximetry 95 Oxygen Delivery Method Room Air Oxygen Flow Rate 0 Const General: comfortable GI Other: ABD: soft, non-peritoneal exam Objective Labs 09/26/25 12:22 09/26/25 12:22 Labs: Laboratory Results - last 24 hr 09/26/25 12:22 WBC 16.0 H D RBC 4.55 Hgb 13.8 Hct 42.2 MCV 92.6 MCH 30.3 MCHC 32.8 RDW 13.4 Plt Count 321 Neut % (Auto) 90.7 H D Lymph % (Auto) 4.7 L D [place] % (Auto) 4.4 Eos % (Auto) 0.0 L Baso % (Auto) 0.2 Neut # (Auto) 09471 H Lymph # (Auto) 800 L [place] # (Auto) 700 Eos # (Auto) 0 Baso # (Auto) 0 Sodium 136 L Potassium 4.2 Chloride 102 Carbon Dioxide 20 L BUN 21 H Creatinine 0.71 Estimated GFR > 60 BUN/Creatinine Ratio 29.6 H Glucose 150 H Calcium 9.0 Magnesium 2.0 PFSH Medical History Osteopenia determined by x-ray Ankle pain (~2016) Mumps Measles History of chicken pox Family history of colon cancer Family history of breast cancer Family history of stroke Family history of hypertension Family history of diabetes mellitus History of uterine fibroid History of hemorrhoids Hypothyroidism Actinic keratitis Hypertension Vitamin D deficiency Cobalamin deficiency Vitamin B-complex deficiency Hypothyroidism Surgical History History of cosmetic surgery (~1991) History of tonsillectomy (~1957) History of hysterectomy (~1997) Family History Father History of heart attack Stroke Mother Stroke Diabetes mellitus Hypertension Hyperlipidemia Sister COPD (chronic obstructive pulmonary disease) Breast cancer in female Daughter Cancer Social History marital status: number of children: 2 household members: children lives independently: Yes caregiver/support person: Yes pets and animals: Yes (Cat-Stormy) education level: other occupational status: other current occupational exposures/hazards: No rik/jainism: Hindu/Gnosticist special rik needs: No travel history: recent leisure activities: games and reading other: Playing cards seatbelt use: always helmet use: No water heater temp set < 120 deg: Yes working smoke detector in home: Yes carbon monox detector in home: Yes firearms in home: No do you feel safe at home: Yes Smoking Status: Never smoker second hand exposure: No (In the past.) alcohol intake: current substance use type: does not use during the past year weight has: remained stable well-balanced diet: about half the time daily servings fruits/ve-4 caffeine: Yes (2+ drinks per day, 1-2 soda/pop drinks per day) eating out: 1-3 times/week Type(s) of exercise: occasional exercise frequency: 1-2 times per week duration: 45-60 minutes/day additional social history: Travel History: [facility], [place], [place]. Assessment & Plan Assessment and plan (1) Ileus, unspecified: Status: Acute Plan Clinical ileus, ?gastroenteritis Clinically improved Advance diet Time-Based Coding :: [TOTAL MINUTES] spent with patient and on the chart (including review of chart, obtaining history, exam, reviewing outside data, placing orders, documenting exam and treatment plan, and counseling patient) on [DATE]. Quality VTE Deep Vein Thrombosis/Pulmonary Embolism Present on Admission: No PROFEE Tower Director Document charge(s): Yes Charge Codes Subsequent inpatient/observation care: [id number]
[2025-09-27 08:00] VITALS: BP 140/74; PULSE 84; RESP 16; TEMP 37.1; O2SAT 94
[2025-09-27] MEDS: ONDANSETRON 4 MG/2 ML INJ IV (09:30)
--- NOTE | 2025-09-27 12:48 | PC.NURSE ---
Day note: Patient awake, alert and pleasantly cooperative. Unable to tolerate Clear Liquid Diet, continue nausea and emeis x 3. Zofran IV PRN admin without relief. Notified Dr. Hernandez and requested a different antiemetic. Abdomen soft, tender only to touch, and mildly distended. Active BS. No c/o pain. BM 2 days ago. Voiding. Up to BSC. Call light within reach.
--- NOTE | 2025-09-27 15:09 | P.PN_ITS ---
Subjective Subjective Date Patient Seen: 09/27/25 Interval history: Chief complaint: Abdominal pain nausea vomiting secondary to ileus with sick contacts History of present illness: 09/26: 85-year-old female whose daughter with sick contact but nausea vomiting abdominal pain presents to the emergency room with nausea vomiting and abdominal pain herself. Workup in the emergency department significant for dilated loops of small bowel consistent with ileus. Emergency provider consulted surgery to render an opinion felt that this was ileus and not a bowel obstruction. Patient admitted for ileus with dehydration secondary to nausea and vomiting and inability to take liquids. Findings in the emergency department significant for imaging demonstrating ileus Hospital course: 09/27: Patient is somewhat better able to tolerate liquids at this time still requiring antiemetics Review of systems: No fever chills rigors No chest pain palpitations or shortness for breath No paresthesia paresis No loss of consciousness Physical exam: Very pleasant elderly female obviously uncomfortable HEENT unremarkable No labored respirations Abdomen very slightly tender soft nondistended bowel sounds present Extremities no edema Assessment and plan: Ileus with sick contacts suspect infectious agent * Continue IV fluids supportive care symptom management * Continue to advance diet as tolerated DVT prophylaxis * Not indicated patient is ambulatory Code status * Full code Disposition: * Due to extended period of parenteral supportive care we will make inpatient anticipate 24 hours more of hospitalization Time based billing: * 35 minutes were involved in evaluation of the face including [id number] evaluation physical examination review of records review of objective laboratory and imaging findings Exam Vital Signs (past 8 hours): - 09/27/25 08:00 Temperature 98.8 F Pulse Rate 84 Respiratory Rate 16 Blood Pressure 140/74 Pulse Oximetry 94 Oxygen Flow Rate 0 Oxygen Delivery Method Room Air Oxygen Flow Rate 0 Objective Labs 09/26/25 12:22 09/26/25 12:22 [facility] Medical History Osteopenia determined by x-ray Ankle pain (~2016) Mumps Measles History of chicken pox Family history of colon cancer Family history of breast cancer Family history of stroke Family history of hypertension Family history of diabetes mellitus History of uterine fibroid History of hemorrhoids Hypothyroidism Actinic keratitis Hypertension Vitamin D deficiency Cobalamin deficiency Vitamin B-complex deficiency Hypothyroidism Surgical History History of cosmetic surgery (~1991) History of tonsillectomy (~1957) History of hysterectomy (~1997) Family History Father History of heart attack Stroke Mother Stroke Diabetes mellitus Hypertension Hyperlipidemia Sister COPD (chronic obstructive pulmonary disease) Breast cancer in female Daughter Cancer Social History marital status: number of children: 2 household members: children lives independently: Yes caregiver/support person: Yes pets and animals: Yes (Cat-Stormy) education level: other occupational status: other current occupational exposures/hazards: No rik/rastafari: Quaker/Christianity special rik needs: No travel history: recent leisure activities: games and reading other: Playing cards seatbelt use: always helmet use: No water heater temp set < 120 deg: Yes working smoke detector in home: Yes carbon monox detector in home: Yes firearms in home: No do you feel safe at home: Yes Smoking Status: Never smoker second hand exposure: No (In the past.) alcohol intake: current substance use type: does not use during the past year weight has: remained stable well-balanced diet: about half the time daily servings fruits/ve-4 caffeine: Yes (2+ drinks per day, 1-2 soda/pop drinks per day) eating out: 1-3 times/week Type(s) of exercise: occasional exercise frequency: 1-2 times per week duration: 45-60 minutes/day additional social history: Travel History: [facility] [place] [place], [place], [place]. Assessment & Plan Time-Based Coding :: [TOTAL MINUTES] spent with patient and on the chart (including review of chart, obtaining history, exam, reviewing outside data, placing orders, documenting exam and treatment plan, and counseling patient) on [DATE]. Quality VTE Deep Vein Thrombosis/Pulmonary Embolism Present on Admission: No
[2025-09-27] MEDS: METOCLOPRAMIDE HCL 5 MG TABLET PO ×2 (17:16→20:22)
[2025-09-27 19:00] VITALS: O2SAT 93
--- NOTE | 2025-09-27 20:09 | PC.NURSE ---
20:09 called lab to confirm they had received unine that was sent [id number]. crime lab technician mynor yes they have it looked like someone put it in frig. he will run it now
[2025-09-27] MEDS: ACETAMINOPHEN 325 MG TABLET 650 MG PO (20:21)
--- NOTE | 2025-09-27 20:25 | DI.RAD.S_ITS ---
PROCEDURE: XR KUB INDICATIONS: SBO TECHNIQUE: One view of the abdomen acquired. COMPARISON: [facility], CT, CT ABDOMEN PELVIS WO CON, 09/26/2025, 4:29. FINDINGS: Surgical changes and devices: None. Bowel: Significant dilatation of multiple small bowel loops, no significant amount of gas in the colon. Soft tissues: No suspicious abdominal calcifications. Visualized solid organ contours appear normal in size. Bones: No suspicious bony lesions. IMPRESSION: Small bowel dilatation appears more prominent compared to the topogram of previous CT, suggestive of evolving distal small bowel obstruction. Dictated by: Marques Yancey M.D. on 09/27/2025 at 21:11 Approved by: Marques Yancey M.D. on 09/27/2025 at 21:12
[2025-09-27 20:26] LABS: Appearance Urine UA SL CLOUDY; Bilirubin Urine UA NEGATIVE (NEGATIVE); Color Urine UA YELLOW; Glucose Urine UA NEGATIVE (Negative); Ketones Urine UA NEGATIVE (NEGATIVE); Leukocyte Esterase Urine UA NEGATIVE (NEGATIVE); Nitrite Urine UA POSITIVE (Negative); Occult Blood Urine UA 1+ (Negative); Protein Urine UA NEGATIVE (Negative); Specific Gravity Urine UA 1.025 (1.000-1.035); Urobilinogen Urine UA 0.2 E.U./dL (0.2)
[2025-09-27 20:27] LABS: pH Urine UA 6.0 (4.5-8.0)
[2025-09-27 20:36] LABS: Culture Indicated Urine Specimen Cultured
[2025-09-27 20:40] VITALS: BP 154/79; PULSE 87
[2025-09-27] MEDS: SODIUM CHLORIDE 0.9% 1,000 ML 100 ML IV (20:41)
[2025-09-27 20:58] LABS: Add Manual Diff / Slide Review NO; Hematocrit 40.5 % (36-46); Hemoglobin 13.2 g/dL (12.0-16.0); Lymphocytes Absolute Auto 1600 /uL (1100-4500); Mean Corpuscular HGB Conc 32.6 % (30-36); Mean Corpuscular Hemoglobin 30.6 PG (26-34); Mean Corpuscular Volume 93.7 fL (80-100); Platelet Count 289 X10^3/uL (150-400)
[2025-09-27 21:09] LABS: Blood Urea Nitrogen 32 mg/dL (7-17); Calcium 8.6 mg/dL (8.4-10.2); Carbon Dioxide 25 mmol/L (22-32); Chloride 103 mmol/L (98-107); Estimated Glomerular Filt Rate > 60 mL/min (>60); Glucose 104 mg/dL (70-99); HEMOLYSIS 48 (0-50); Potassium 4.5 mmol/L (3.4-5.1); Sodium 136 mmol/L (137-145)
[2025-09-27 21:51] VITALS: TEMP 37.9
[2025-09-27 22:21] VITALS: BP 140/85; PULSE 85; RESP 14; TEMP 37.9; O2SAT 93
[2025-09-28] VITALS (8 sets, daily range): BP systolic 138–172; BP diastolic 77–87; PULSE 79–91; RESP 16; TEMP 36.3–38; O2SAT 92–98
--- NOTE | 2025-09-28 | DI.RAD.S_ITS ---
PROCEDURE: XR GASTROGRAFIN CHALLENGE COMPARISON: None. INDICATIONS: SBO FINDINGS: 4 hour films demonstrate contrast throughout the stomach small bowel and some contrast in the colon which suggests partial small bowel obstruction versus severe ileus with dilated small bowel in the mid abdomen measuring up to 4.2 cm diameter. As contrast did pass into the colon , there is no complete obstruction. No gross free gas. IMPRESSION: No gross radiographic evidence of complete obstruction. Partial obstruction or severe ileus could give this appearance. Dictated by: Zen Cano M.D. on 09/28/2025 at 20:36 Approved by: Zen Cano M.D. on 09/28/2025 at 20:39
[2025-09-28] MEDS: METOCLOPRAMIDE 10 MG/2 ML INJ IV ×2 (00:05→17:46)
--- NOTE | 2025-09-28 05:12 | PC.NURSE ---
Pt has been vomiting, 550mls of brown colored emesis..IV Reglan given and PO order discontinued. IV ABx commenced. Fever has subsided from 100.2 to 98.4. IV NS @ 100ml in progress. Nursing management continued.
[2025-09-28] MEDS: LEVOTHYROXINE 50 MCG TABLET PO (06:16)
--- NOTE | 2025-09-28 06:34 | PC.NURSE ---
Pt is A&O, VS within normal range. Vomited 100mls of light brown fluid. Has not passed urine, encouraged to use the commode and she refused. I offered to do a bladder scan and pt verbalized that she refused.Family informed
[2025-09-28] MEDS: SODIUM CHLORIDE 0.9% 1,000 ML 100 ML IV (06:45)
[2025-09-28 07:03] LABS: Alanine Aminotransferase 24 IU/L (<35); Albumin 4.0 g/dL (3.5-5.0); Albumin Globulin Ratio 1.4 (1.0-2.8); Alkaline Phosphatase 77 U/L (38-126); Blood Urea Nitrogen 34 mg/dL (7-17); Calcium 8.8 mg/dL (8.4-10.2); Carbon Dioxide 28 mmol/L (22-32); Chloride 103 mmol/L (98-107); Estimated Glomerular Filt Rate > 60 mL/min (>60); Globulin 2.9 g/dL (1.7-4.1); Glucose 128 mg/dL (70-99); HEMOLYSIS 31 (0-50); Potassium 3.8 mmol/L (3.4-5.1); Sodium 136 mmol/L (137-145); Total Protein 6.9 g/dL (6.3-8.2)
--- NOTE | 2025-09-28 08:28 | DI.RAD.S_ITS ---
PROCEDURE: XR CHEST 1V INDICATIONS: NG tube placement confirmation TECHNIQUE: One view of the chest was acquired. COMPARISON: [facility], CT, CT ABDOMEN PELVIS WO CON, 09/26/2025, 4:29. [facility], CR, XR KUB, 09/27/2025, 20:42. FINDINGS: Surgical changes and devices: NG tube projects to the distal body of the stomach or beyond. Lungs and pleura: Probable right basilar pleural fluid and right basilar atelectasis. Mediastinum: Mediastinal contours appear normal. Heart size is normal. Bones and chest wall: No suspicious bony lesions. Overlying soft tissues appear unremarkable. IMPRESSION: Satisfactory NG tube placement. Dictated by: Sorin Larios M.D. on 09/28/2025 at 8:56 Approved by: Sorin Larios M.D. on 09/28/2025 at 8:57
--- NOTE | 2025-09-28 08:30 | PC.NURSE ---
NG tube place by CLAUDIA Manriquez, pt tolerated very well. Ordered portable chest xray for placement confirmation; xray performed, confirmed placement. NG tube 56cm at L nare. NG set to low intermittent suction. Green liquid output.
[2025-09-28] MEDS: SODIUM CHLORIDE 0.9% 500 ML 1000 ML IV ×2 (08:35→20:04)
--- NOTE | 2025-09-28 08:41 | CM.DANOTE ---
Initial DCP Assessment Visit Note Reviewed EMR and team rounds for pt's medical status and updates. Met with pt/dtr at the bedside to introduce self and role, pt was found to be alert/oriented, very ill-appearing w/facial grimacing. Pt lives modified independent at baseline with her dtr in her own apt here in [facility]. She has 2-local dtrs, Tory works here at and is very supportive and involved in her mother's care and needs. One of the dtrs will transport pt home at time of d/c, unless she will need SNF rehab for further recovery. Payor: Medicare PCP: Cari Rea Pt is a 85 year-old F who presented to the ED with c/o bilateral lower back pain and abdominal pain for the last several hours. CT abd/pelvis showed small bowel enteritis and an ileus. Surgery was consulted, and the plan was made to make her NPO, and start with conservative measures, bowel rest, symptom management, and no surgical intervention at this time. Yesterday, she was working on advancing her diet, however she vomited most of the day. Plan is for new Surgical consultation today, NG tube placed, and pt is now NPO in case of the need for surgery. DCP will continue to follow for any further evolving needs for d/c. Discharge Planning/Care Management Advanced directive, confirm from FAMILY Start: 09/26/25 08:34 Freq: Q24H Status: Active Protocol: Document 09/26/25 08:34 CEW (Rec: 09/26/25 18:53 CEW [id number]) Advance Directive, confirm on record Time 08:30 Person contacted pt Copy received No Document 09/27/25 08:34 ESV (Rec: 09/27/25 09:23 ESV [id number]) Advance Directive, confirm on record Time 08:30 Person contacted pt Copy received No CM Discharge Assessment Start: 09/26/25 07:01 Freq: Status: Active Protocol: Document 09/28/25 08:12 DPL (Rec: 09/28/25 08:14 DPL [id number]) Discharge Planning Assessment Assigned Discharge SAMAN Jimenez Estimator Project Manager Insurance Medicare Advance Directives? Yes Advance Directives No on File History Provided By Patient,Family Member,Medical Record Has Patient been No admitted in last 30 days? Prior Living House Arrangements Household Members children Type of Relies on Others transporation used prior to admit Independent with ADL No: modified independent with a walker and assistance 's Is patient alert and Yes oriented? Needs Assistance Managing Medications,Home Chores / Shopping With Caregiver for No Another DME Already Rented / Bath Bench,Elevated Toilet Seat,FWW / Walker Owned Comment Pending Barriers to No Discharge Discharge Plan Home Additional Comment Pending final therapy recs. Whiteboard Updated Yes in Patient Room with name and ext. # of [place] Worker Review Status In Process Please Provide Date 09/28/25 Initial DC Assessment Was Performed
[2025-09-28] MEDS: SODIUM CHLORIDE 0.9% 1,000 ML 150 ML IV ×2 (10:55→17:41)
--- NOTE | 2025-09-28 11:51 | PM.PN.IH.1 ---
Subjective Subjective Date Patient Seen: 09/28/25 Time Patient Seen: 11:00 Interval history: This anibal 85-year-old female, admitted September 26, 2025 for potential partial small-bowel obstruction versus ileus. The patient was noted to have a significant UTI and is currently receiving treatment. Her daughter is at the bedside. The patient reports that she had only a brief hiatus from vomiting and vomited most of yesterday until a nasogastric tube was placed. 650 cc of enteric content was returned. The patient reports now that the nausea and vomiting have completely abated and that she ?loves the NG tube?. She states she is not nauseated and has no abdominal pain at this time. However, she also notes that she is not passing flatus. She had a small bowel movement yesterday. Her previous bowel movement was on the . She reports no shortness of breath, chest pain, abdominal pain, or malaise. She does note that she is extremely sleepy, however, states she was up most of the night with nausea and vomiting. A KUB following nasogastric tube placement revealed dilated loops of small bowel particularly in the ileum. At this time she is without complaints. Exam Vital Signs (past 8 hours): - 09/28/25 08:00 Temperature 98.2 F Pulse Rate 79 Respiratory Rate 16 Blood Pressure 154/86 H Pulse Oximetry 94 Oxygen Flow Rate 0 Oxygen Delivery Method Room Air Oxygen Flow Rate 0 Narrative Exam Narrative: AVSS Sleeping soundly on arrival, however, easily awakened and very alert. Respirations symmetrical, however, diminished bilaterally. No wheezes or rales noted. Slightly rhonchorous. Suggestive of bilateral developing atelectasis. Regular rate and rhythm without murmur Abdomen is soft, nondistended, and nontender. Bowel sounds are only appreciated in the right lower quadrant, and these are scanned. No peritoneal signs. Moves all extremities x4 Objective Labs 09/27/25 20:50 09/28/25 06:12 Labs: Laboratory Results - last 24 hr 09/27/25 09/27/25 09/28/25 17:15 20:50 06:12 WBC 12.3 H RBC 4.32 Hgb 13.2 Hct 40.5 MCV 93.7 MCH 30.6 MCHC 32.6 RDW 13.9 Plt Count 289 Neut % (Auto) 77.4 H Lymph % (Auto) 13.2 L [place] % (Auto) 8.4 Eos % (Auto) 0.2 L Baso % (Auto) 0.8 Neut # (Auto) 9500 H Lymph # (Auto) 1600 [place] # (Auto) 1000 H Eos # (Auto) 0 Baso # (Auto) 100 Sodium 136 L 136 L Potassium 4.5 3.8 Chloride 103 103 Carbon Dioxide 25 28 BUN 32 H 34 H Creatinine 0.79 0.78 Estimated GFR > 60 > 60 BUN/Creatinine Ratio 40.5 H 43.6 H Glucose 104 H 128 H Calcium 8.6 8.8 Total Bilirubin 0.6 AST 35 ALT 24 Alkaline Phosphatase 77 Total Protein 6.9 Albumin 4.0 Globulin 2.9 Albumin/Globulin Ratio 1.4 Urine Color Yellow Urine Appearance Sl cloudy Urine pH 6.0 Ur Specific [place] 1.025 Urine Protein Negative Urine Glucose (UA) Negative Urine Ketones Negative Urine Occult Blood 1+ H Urine Nitrate Positive H Urine Bilirubin Negative Urine Urobilinogen 0.2 Ur Leukocyte Esterase Negative Urine RBC 0-1/hpf Urine WBC 5-10/hpf H Ur Squamous Epith Cells 0-1 /hpf Urine Bacteria Many (>30) H Ur Culture Indicated? Specimen cultured Micro UA Comment Vol Urine Centrifuged 10ml (spun) [facility] Medical History Osteopenia determined by x-ray Ankle pain (~2016) Mumps Measles History of chicken pox Family history of colon cancer Family history of breast cancer Family history of stroke Family history of hypertension Family history of diabetes mellitus History of uterine fibroid History of hemorrhoids Hypothyroidism Actinic keratitis Hypertension Vitamin D deficiency Cobalamin deficiency Vitamin B-complex deficiency Hypothyroidism Surgical History History of cosmetic surgery (~1991) History of tonsillectomy (~1957) History of hysterectomy (~1997) Family History Father History of heart attack Stroke Mother Stroke Diabetes mellitus Hypertension Hyperlipidemia Sister COPD (chronic obstructive pulmonary disease) Breast cancer in female Daughter Cancer Social History marital status: number of children: 2 household members: children lives independently: Yes caregiver/support person: Yes pets and animals: Yes (Cat-Stormy) education level: other occupational status: other current occupational exposures/hazards: No rik/catholic: Oriental Orthodox/Confucianism special rik needs: No travel history: recent leisure activities: games and reading other: Playing cards seatbelt use: always helmet use: No water heater temp set < 120 deg: Yes working smoke detector in home: Yes carbon monox detector in home: Yes firearms in home: No do you feel safe at home: Yes Smoking Status: Never smoker second hand exposure: No (In the past.) alcohol intake: current substance use type: does not use during the past year weight has: remained stable well-balanced diet: about half the time daily servings fruits/ve-4 caffeine: Yes (2+ drinks per day, 1-2 soda/pop drinks per day) eating out: 1-3 times/week Type(s) of exercise: occasional exercise frequency: 1-2 times per week duration: 45-60 minutes/day additional social history: Travel History: [facility]- [place], [place], [place]. Assessment & Plan Assessment & Plan narrative: Small bowel obstruction versus ileus 85-year-old female with partial small bowel obstruction versus ileus. I have spoken at length with the patient and her daughter. Her clinical appearance is improving. I explained to her the need for the NG tube. We discussed a potential Gastrografin challenge. The patient is in agreement. Given that she has very scant bowel sounds, I tend to lean more toward ileus related to her UTI. Her leukocytosis which was 16,000 yesterday has improved to 12,000. This is after the initiation of antibiotics. I explained to the patient that it is critically important that she not be lying in bed, but will be assisted to sitting up in a chair. We will attempt to arrange a PT consult. I have also recommended the use of an incentive spirometer. The patient has agreed to wear a SCD's. We will keep the blinds open and the lights on in order to prevent owning. I will repeat the KUB and if there is no improvement we will again consider a Gastrografin challenge. It is also of course, critically important that we monitor urine output. Her daughter is a nurse and has been very diligent in doing so. To her knowledge the patient has only voided 550 cc since yesterday morning. A small fluid bolus might be prudent. I will discuss my findings with the hospitalist. Time-Based Coding :: [TOTAL MINUTES] spent with patient and on the chart (including review of chart, obtaining history, exam, reviewing outside data, placing orders, documenting exam and treatment plan, and counseling patient) on [DATE]. Quality VTE Deep Vein Thrombosis/Pulmonary Embolism Present on Admission: No IH PROFEE Tie Hacker Document charge(s): Yes Charge Codes Subsequent inpatient/observation care: 13611
--- NOTE | 2025-09-28 13:00 | DI.RAD.S_ITS ---
PROCEDURE: XR ABDOMEN MIN 2V INDICATIONS: Dehydration, ileus TECHNIQUE: 2 views of the abdomen were acquired. COMPARISON: [facility], CR, XR KUB, 09/27/2025, 20:42. FINDINGS: Surgical changes and devices: Gastric tube tip and side port project over the stomach. Bowel: Similar gaseous distension of the small bowel. Soft tissues: No masses; visualized solid organ contours appear normal in size. No suspicious abdominal calcifications. Bones: No suspicious bony abnormalities. IMPRESSION: Similar gaseous distension of the small bowel. No frances pneumoperitoneum. Dictated by: Stanley Gilliam M.D. on 09/28/2025 at 13:48 Approved by: Stanley Gilliam M.D. on 09/28/2025 at 13:48
--- NOTE | 2025-09-28 15:47 | PT-IP ANOTE ---
Checked on pt x 2. pt asleep. daughter in room and wants pt to sleep. checked back on pt after 1 1/2 hours pt still asleep but woke up and refused PT. stated that she will do it tomorrow.
[2025-09-28] MEDS: ACETAMINOPHEN IV 1,000 MG/100 ML VIAL 400 MG IV (17:33)
[2025-09-28 18:28] LABS: Add Manual Diff / Slide Review NO; Hematocrit 40.8 % (36-46); Hemoglobin 13.6 g/dL (12.0-16.0); Lymphocytes Absolute Auto 1200 /uL (1100-4500); Mean Corpuscular HGB Conc 33.4 % (30-36); Mean Corpuscular Hemoglobin 31.1 PG (26-34); Mean Corpuscular Volume 93.1 fL (80-100); Platelet Count 320 X10^3/uL (150-400)
--- NOTE | 2025-09-28 18:57 | P.PN_ITS ---
Subjective Subjective Date Patient Seen: 09/28/25 Interval history: Chief complaint: Abdominal pain nausea vomiting secondary to ileus with sick contacts History of present illness: 09/26: 85-year-old female whose daughter with sick contact but nausea vomiting abdominal pain presents to the emergency room with nausea vomiting and abdominal pain herself. Workup in the emergency department significant for dilated loops of small bowel consistent with ileus. Emergency provider consulted surgery to render an opinion felt that this was ileus and not a bowel obstruction. Patient admitted for ileus with dehydration secondary to nausea and vomiting and inability to take liquids. Findings in the emergency department significant for imaging demonstrating ileus Hospital course: 09/27: Patient is somewhat better able to tolerate liquids at this time still requiring antiemetics 09/28: Patient developed worsening emesis overnight with increased localized distention of small bowel on KUB NG tube was placed urinalysis and blood cultures obtained. Unfortunately patient vomited after Gastrografin challenge followed by development of low-grade fevers Review of systems: Low-grade temperature Physical exam: Very pleasant elderly female obviously uncomfortable HEENT unremarkable No labored respirations Abdomen very slightly tender soft nondistended bowel sounds present Extremities no edema Assessment and plan: Ileus with with increasing nausea and vomiting * Continue IV fluids supportive care symptom management * Nasogastric suction * Escalate antibiotics to Zosyn for suspicion of aspiration * Chest x-ray Suspected urinary tract infection: * Urine analysis and blood culture * Should be covered with Zosyn DVT prophylaxis * Not indicated patient is ambulatory Code status * Full code Disposition: * Inpatient until above conditions resolve Time based billing: * 35 minutes were involved in evaluation of the face including [id number] evaluation physical examination review of records review of objective laboratory and imaging findings Exam Vital Signs (past 8 hours): - 09/28/25 15:30 09/28/25 15:47 09/28/25 17:33 Temperature 97.4 F L 99.6 F 100.4 F H Pulse Rate 79 Respiratory Rate 16 Blood Pressure 158/77 H Pulse Oximetry 94 Oxygen Flow Rate 0 Oxygen Delivery Method Room Air Oxygen Flow Rate 0 Objective Labs 09/28/25 18:23 09/28/25 06:12 Labs: Laboratory Results - last 24 hr 09/27/25 09/27/25 09/28/25 17:15 20:50 06:12 WBC 12.3 H RBC 4.32 Hgb 13.2 Hct 40.5 MCV 93.7 MCH 30.6 MCHC 32.6 RDW 13.9 Plt Count 289 Neut % (Auto) 77.4 H Lymph % (Auto) 13.2 L [place] % (Auto) 8.4 Eos % (Auto) 0.2 L Baso % (Auto) 0.8 Neut # (Auto) 9500 H Lymph # (Auto) 1600 [place] # (Auto) 1000 H Eos # (Auto) 0 Baso # (Auto) 100 Sodium 136 L 136 L Potassium 4.5 3.8 Chloride 103 103 Carbon Dioxide 25 28 BUN 32 H 34 H Creatinine 0.79 0.78 Estimated GFR > 60 > 60 BUN/Creatinine Ratio 40.5 H 43.6 H Glucose 104 H 128 H Calcium 8.6 8.8 Total Bilirubin 0.6 AST 35 ALT 24 Alkaline Phosphatase 77 Total Protein 6.9 Albumin 4.0 Globulin 2.9 Albumin/Globulin Ratio 1.4 Urine Color Yellow Urine Appearance Sl cloudy Urine pH 6.0 Ur Specific [place] 1.025 Urine Protein Negative Urine Glucose (UA) Negative Urine Ketones Negative Urine Occult Blood 1+ H Urine Nitrate Positive H Urine Bilirubin Negative Urine Urobilinogen 0.2 Ur Leukocyte Esterase Negative Urine RBC 0-1/hpf Urine WBC 5-10/hpf H Ur Squamous Epith Cells 0-1 /hpf Ur Transition Epith Cell Not Reportable Ur Renal Epithelial Cell Not Reportable Calcium Oxalate Crystal Not Reportable Uric Acid Crystals Not Reportable Triple Phos Crystals Not Reportable Other Crystals Not Reportable Amorphous Sediment Not Reportable Urine Bacteria Many (>30) H Hyaline Casts Not Reportable Granular Casts Not Reportable RBC Casts Not Reportable WBC Casts Not Reportable Other Casts Not Reportable Urine Mucus Not Reportable Urine Trichomonas Not Reportable Urine Yeast Not Reportable Urine Sperm Not Reportable Ur Culture Indicated? Specimen cultured Micro UA Comment Vol Urine Centrifuged 10ml (spun) 09/28/25 18:23 WBC 9.7 RBC 4.38 Hgb 13.6 Hct 40.8 MCV 93.1 MCH 31.1 MCHC 33.4 RDW 13.5 Plt Count 320 Neut % (Auto) 77.8 H Lymph % (Auto) 12.2 L [place] % (Auto) 9.4 Eos % (Auto) 0.3 L Baso % (Auto) 0.3 Neut # (Auto) 7600 H Lymph # (Auto) 1200 [place] # (Auto) 900 Eos # (Auto) 0 Baso # (Auto) 0 Sodium Potassium Chloride Carbon Dioxide BUN Creatinine Estimated GFR BUN/Creatinine Ratio Glucose Calcium Total Bilirubin AST ALT Alkaline Phosphatase Total Protein Albumin Globulin Albumin/Globulin Ratio Urine Color Urine Appearance Urine pH Ur Specific [place] Urine Protein Urine Glucose (UA) Urine Ketones Urine Occult Blood Urine Nitrate Urine Bilirubin Urine Urobilinogen Ur Leukocyte Esterase Urine RBC Urine WBC Ur Squamous Epith Cells Ur Transition Epith Cell Ur Renal Epithelial Cell Calcium Oxalate Crystal Uric Acid Crystals Triple Phos Crystals Other Crystals Amorphous Sediment Urine Bacteria Hyaline Casts Granular Casts RBC Casts WBC Casts Other Casts Urine Mucus Urine Trichomonas Urine Yeast Urine Sperm Ur Culture Indicated? Micro UA Comment Vol Urine Centrifuged [facility] Medical History Osteopenia determined by x-ray Ankle pain (~2016) Mumps Measles History of chicken pox Family history of colon cancer Family history of breast cancer Family history of stroke Family history of hypertension Family history of diabetes mellitus History of uterine fibroid History of hemorrhoids Hypothyroidism Actinic keratitis Hypertension Vitamin D deficiency Cobalamin deficiency Vitamin B-complex deficiency Hypothyroidism Surgical History History of cosmetic surgery (~1991) History of tonsillectomy (~1957) History of hysterectomy (~1997) Family History Father History of heart attack Stroke Mother Stroke Diabetes mellitus Hypertension Hyperlipidemia Sister COPD (chronic obstructive pulmonary disease) Breast cancer in female Daughter Cancer Social History marital status: number of children: 2 household members: children lives independently: Yes caregiver/support person: Yes pets and animals: Yes (Cat-Stormy) education level: other occupational status: other current occupational exposures/hazards: No rik/presybeterian: Rastafarian/Mandaen special rik needs: No travel history: recent leisure activities: games and reading other: Playing cards seatbelt use: always helmet use: No water heater temp set < 120 deg: Yes working smoke detector in home: Yes carbon monox detector in home: Yes firearms in home: No do you feel safe at home: Yes Smoking Status: Never smoker second hand exposure: No (In the past.) alcohol intake: current substance use type: does not use during the past year weight has: remained stable well-balanced diet: about half the time daily servings fruits/ve-4 caffeine: Yes (2+ drinks per day, 1-2 soda/pop drinks per day) eating out: 1-3 times/week Type(s) of exercise: occasional exercise frequency: 1-2 times per week duration: 45-60 minutes/day additional social history: Travel History: [facility]- [place], [place], [place]. Assessment & Plan Time-Based Coding :: [TOTAL MINUTES] spent with patient and on the chart (including review of chart, obtaining history, exam, reviewing outside data, placing orders, documenting exam and treatment plan, and counseling patient) on [DATE]. Quality VTE Deep Vein Thrombosis/Pulmonary Embolism Present on Admission: No
--- NOTE | 2025-09-28 19:08 | DI.RAD.S_ITS ---
PROCEDURE: XR CHEST 1V INDICATIONS: Suspected aspiration TECHNIQUE: One view of the chest was acquired. COMPARISON: [facility], CR, XR CHEST 1V, 09/28/2025, 8:24. FINDINGS: Nasogastric/orogastric tube extends into the left upper abdomen off the inferior margin of the image. Mild bibasilar consolidations partially obscuring the diaphragm commonly represents a combination of small pleural effusions, atelectatic changes, alveolar opacification, pneumonia or other process , mildly decreased compared to the prior exam. Mildly enlarged cardiopericardial silhouette and prominent eliezer, pulmonary vessels unchanged. No pneumothorax. Remainder of the exam unchanged IMPRESSION: Mild improvement in bibasilar consolidations as discussed above. Remainder of the exam unchanged. Continued follow-up suggested. If symptoms persist or worsen, CT chest could be performed. Dictated by: Zen Cano M.D. on 09/28/2025 at 20:09 Approved by: Zen Cano M.D. on 09/28/2025 at 20:12
--- NOTE | 2025-09-28 19:42 | PC.NURSE ---
Called [facility] to inquire as to status of 174 post-gastrograffin x-ray. [facility] stated that order was not put in as a stat read. Confirmed via orders screen that MD Hernandez did put order in as stat. Called back down to [facility]; DI's screen still did not state stat. [facility] kindly inquired further and was able to change the status in their system to stat; awaiting radiologist report. Informed MD Kamara and CLAUDIA Hagen.
[2025-09-28] MEDS: ONDANSETRON 4 MG/2 ML INJ IV (20:12)
[2025-09-28] MEDS: PIPERACILLIN/TAZO 4.5 GM in SODIUM CHLORIDE 0.9% 100 ML IV (20:41)
[2025-09-29] VITALS (7 sets, daily range): BP systolic 148–160; BP diastolic 73–90; PULSE 73–102; RESP 16–19; TEMP 36.2–36.8; O2SAT 93–97
[2025-09-29] MEDS: SODIUM CHLORIDE 0.9% 1,000 ML 150 ML IV ×3 (02:12→18:25)
[2025-09-29] MEDS: PIPERACILLIN/TAZO 3.375 GM in SODIUM CHLORIDE 0.9% 100 ML IV ×3 (02:18→18:05)
--- NOTE | 2025-09-29 06:00 | DI.RAD.S_ITS ---
PROCEDURE: XR KUB INDICATIONS: Ileus TECHNIQUE: One view of the abdomen acquired. COMPARISON: [facility], , XR KUB, 09/27/2025, 20:42. FINDINGS: Surgical changes and devices: None. Bowel: Gaseous distension of the small bowel measures up to 3.4 cm. Enteric contrast in the colon. Nasogastric tube in the stomach. Soft tissues: No suspicious abdominal calcifications. Visualized solid organ contours appear normal in size. Bones: No suspicious bony lesions. IMPRESSION: Dilated small bowel consistent with ileus or obstruction. Note: This final report is concordant with the preliminary after-hours interpretation provided by [facility] Approved by: Blane Dickerson M.D. on 09/29/2025 at 8:27
--- NOTE | 2025-09-29 07:23 | P.PN_ITS ---
Subjective Subjective Date Patient Seen: 09/29/25 Interval history: Chief complaint: Abdominal pain nausea vomiting secondary to ileus with aspiration pneumonia History of present illness: 09/26: 85-year-old female whose daughter with sick contact but nausea vomiting abdominal pain presents to the emergency room with nausea vomiting and abdominal pain herself. Workup in the emergency department significant for dilated loops of small bowel consistent with ileus. Emergency provider consulted surgery to render an opinion felt that this was ileus and not a bowel obstruction. Patient admitted for ileus with dehydration secondary to nausea and vomiting and inability to take liquids. Findings in the emergency department significant for imaging demonstrating ileus Hospital course: 09/27: Patient is somewhat better able to tolerate liquids at this time still requiring antiemetics 09/28: Patient developed worsening emesis overnight with increased localized distention of small bowel on KUB NG tube was placed urinalysis and blood cultures obtained. Unfortunately patient vomited after Gastrografin challenge followed by development of low-grade fevers chest x-ray showed a right lower lobe infiltrate improved with incentive spirometry and ambulation as outlined by surgery service ceftriaxone escalated to Zosyn in the evening IV fluids have been continuing boluses urine output 2680 overnight 09/29: Patient feeling better appears more asking if she can drink something did have emesis last night large liquid bowel movement Chest x-ray shows interval improvement of the right lower lobe and right middle lobe infiltrates white blood cell count has de-escalated from 16 down to 12.3 down to 9.7 urine output 24 hours 1200 cc and 2000 cc of gastric drainage Review of systems: No further fevers chills Physical exam: Very pleasant elderly female obviously uncomfortable HEENT unremarkable No labored respirations Right middle lobe and right posterior basilar crackles Abdomen very slightly tender soft nondistended bowel sounds present Extremities no edema Assessment and plan: Ileus with with increasing nausea and vomiting * Continue IV fluids supportive care symptom management * Nasogastric suction * Escalated antibiotics to Zosyn for suspicion of aspiration * Chest x-ray shows interval improvement of right lower lobe infiltrate Suspected urinary tract infection: * Urine culture preliminary Gram-negative rods * and blood culture no growth 24 hours * Should be covered with Zosyn DVT prophylaxis * Not indicated patient is ambulatory Code status * Full code Disposition: * Inpatient until above conditions resolve anticipate 2-3 more days possible discharge Tuesday 10/02 Time based billing: * 35 minutes were involved in evaluation of the face including [id number]-temb evaluation physical examination review of records review of objective laboratory and imaging findings Exam Vital Signs (past 8 hours): - 09/29/25 03:00 Temperature 97.8 F Pulse Rate 102 H Respiratory Rate 16 Blood Pressure 152/90 H Pulse Oximetry 93 Oxygen Flow Rate 0 Oxygen Delivery Method Room Air Oxygen Flow Rate 0 Objective Labs 09/28/25 18:23 09/28/25 06:12 Labs: Laboratory Results - last 24 hr 09/27/25 09/28/25 17:15 18:23 WBC 9.7 RBC 4.38 Hgb 13.6 Hct 40.8 MCV 93.1 MCH 31.1 MCHC 33.4 RDW 13.5 Plt Count 320 Neut % (Auto) 77.8 H Lymph % (Auto) 12.2 L [place] % (Auto) 9.4 Eos % (Auto) 0.3 L Baso % (Auto) 0.3 Neut # (Auto) 7600 H Lymph # (Auto) 1200 [place] # (Auto) 900 Eos # (Auto) 0 Baso # (Auto) 0 Urine Color Yellow Urine Appearance Sl cloudy Urine pH 6.0 Ur Specific [place] 1.025 Urine Protein Negative Urine Glucose (UA) Negative Urine Ketones Negative Urine Occult Blood 1+ H Urine Nitrate Positive H Urine Bilirubin Negative Urine Urobilinogen 0.2 Ur Leukocyte Esterase Negative Urine RBC 0-1/hpf Urine WBC 5-10/hpf H Ur Squamous Epith Cells 0-1 /hpf Ur Transition Epith Cell Not Reportable Ur Renal Epithelial Cell Not Reportable Calcium Oxalate Crystal Not Reportable Uric Acid Crystals Not Reportable Triple Phos Crystals Not Reportable Other Crystals Not Reportable Amorphous Sediment Not Reportable Urine Bacteria Many (>30) H Hyaline Casts Not Reportable Granular Casts Not Reportable RBC Casts Not Reportable WBC Casts Not Reportable Other Casts Not Reportable Urine Mucus Not Reportable Urine Trichomonas Not Reportable Urine Yeast Not Reportable Urine Sperm Not Reportable Ur Culture Indicated? Specimen cultured Micro UA Comment Vol Urine Centrifuged 10ml (spun) [facility] Medical History Osteopenia determined by x-ray Ankle pain (~2016) Mumps Measles History of chicken pox Family history of colon cancer Family history of breast cancer Family history of stroke Family history of hypertension Family history of diabetes mellitus History of uterine fibroid History of hemorrhoids Hypothyroidism Actinic keratitis Hypertension Vitamin D deficiency Cobalamin deficiency Vitamin B-complex deficiency Hypothyroidism Surgical History History of cosmetic surgery (~1991) History of tonsillectomy (~1957) History of hysterectomy (~1997) Family History Father History of heart attack Stroke Mother Stroke Diabetes mellitus Hypertension Hyperlipidemia Sister COPD (chronic obstructive pulmonary disease) Breast cancer in female Daughter Cancer Social History marital status: number of children: 2 household members: children lives independently: Yes caregiver/support person: Yes pets and animals: Yes (Cat-Stormy) education level: other occupational status: other current occupational exposures/hazards: No rik/shinto: Restorationism/Confucianism special rik needs: No travel history: recent leisure activities: games and reading other: Playing cards seatbelt use: always helmet use: No water heater temp set < 120 deg: Yes working smoke detector in home: Yes carbon monox detector in home: Yes firearms in home: No do you feel safe at home: Yes Smoking Status: Never smoker second hand exposure: No (In the past.) alcohol intake: current substance use type: does not use during the past year weight has: remained stable well-balanced diet: about half the time daily servings fruits/ve-4 caffeine: Yes (2+ drinks per day, 1-2 soda/pop drinks per day) eating out: 1-3 times/week Type(s) of exercise: occasional exercise frequency: 1-2 times per week duration: 45-60 minutes/day additional social history: Travel History: [facility]- [place], [place], [place]. Assessment & Plan Time-Based Coding :: [TOTAL MINUTES] spent with patient and on the chart (including review of chart, obtaining history, exam, reviewing outside data, placing orders, documenting exam and treatment plan, and counseling patient) on [DATE]. Quality VTE Deep Vein Thrombosis/Pulmonary Embolism Present on Admission: No
--- NOTE | 2025-09-29 10:25 | PT.IIE ---
Current Diagnoses Ileus, unspecified (09/26/25) Generalized abdominal pain (09/26/25) Surgical History (Last Reviewed 09/26/25 @ 06:30 by Kj Watson MD) History of cosmetic surgery (~1991) History of hysterectomy (~1997) History of tonsillectomy (~1957) Medical History (Last Reviewed 09/26/25 @ 06:30 by Kj Watson MD) Actinic keratitis Ankle pain (~2016) Cobalamin deficiency Family history of breast cancer Family history of colon cancer Family history of diabetes mellitus Family history of hypertension Family history of stroke History of chicken pox History of hemorrhoids History of uterine fibroid Hypertension Hypothyroidism Hypothyroidism Measles Mumps Osteopenia determined by x-ray Vitamin B-complex deficiency Vitamin D deficiency Physical Therapy Inpatient Evaluation/Re-Eval M1 PT/OT-IP Prior Functional Status Start: 09/29/25 12:24 Freq: NEEDED Status: Active Protocol: Document 09/29/25 10:25 AB (Rec: 09/29/25 12:37 AB Desktop) Medical Review Prior Functional Status Medical History Yes Reviewed Communication able to make needs known Mobility and Gait PLOF and home setup provided by pt's daughter: stated that pt was modified independent with all mobilities and ambulation using a 4WW indoors and uses a SPC for outdoor mobility but occasionally ambulates without AD Social History Household Members children Living Arrangements Apartment/Condo Number of Floors ( One Floor Floors) Number of Stairs To elevator to get to her condo Enter/Railing? Home Environment Standard Height Toilet,Walk in Shower Home Equipment Four Wheel Walker,Straight Cane,Shower Seat with Backrest,Hand Held Shower,Grab Bars Near Toilet,Grab Bars In Shower Additional Social pt lives with her daughter who works : may not be History Comment available to assist pt M2 PT-IP Current Condition Start: 09/29/25 12:24 Freq: NEEDED Status: Active Protocol: Document 09/29/25 10:25 AB (Rec: 09/29/25 12:37 AB Desktop) Physical Therapy Current Condition Current Condition Evaluation Date 09/29/25 Treatment Diagnosis SBO; UTI; difficulty in walking Onset Date 09/26/25 M3 PT-IP Subjective Start: 09/29/25 12:24 Freq: NEEDED Status: Active Protocol: Document 09/29/25 10:25 AB (Rec: 09/29/25 12:37 AB Desktop) Subjective Physical Therapy Visit Type Type Initial Evaluation Visit Start Time 10:25 Visit Stop Time 11:00 Number of STOCK PREPARER Visits 0 Physical Therapy Visit Comments Patient Comments agreeable to do PT M4 PT-IP Mobility and Gait Start: 09/29/25 12:24 Freq: NEEDED Status: Active Protocol: Document 09/29/25 10:25 AB (Rec: 09/29/25 12:37 AB Desktop) PT-Bed Mobility Assessment Supine to Sit Supine to Sit Standby Assistance,Head of Bed Elevated,Bedrails PT-Transfer Assessment Sit to and From Stand Sit to and from Minimal Assistance,1 Person Assistance,Use of Upper Stand Extremities Equipment Transfer Assistive Gait Belt,Front Wheeled Walker Device Orthotic/Prosthetic No Devices or Brace: Transfers Transfer Destination Chair Transfer Technique ambulated Transfer Ability Level of Assist Minimal Assistance,1 Person Assistance,Use of Upper Extremities Comments Mobility Comments pt in bed and agreeable to do PT. PLOF and home setup obtained from pt's daughter. BP in supine: 180/80 O2 sat: 95% and PA 70. pt completed supine to sit SBA and cues. able to sit on EOB SBA. sit to stand min A and cues. pt ambulated in room using FWW min A and cues ~ 20 ft. presents with unsteady gait with increase bilateral LE ER and ankle inversion R> L. increase unsteadiness midway with ambulation. pt sat on the chair. positioned on the chair. call light and table placed within reach. Gait Assessment Gait Gait Assistance Minimum Assistance Required: Distance (Feet) 20 Able to Maintain Yes Weight Bearing Status During Gait Assistive Devices Assistive Device Gait Belt,Front Wheeled Walker Orthotic/Prosthetic No Devices or Brace: Gait Deviations General Gait Pattern Antalgic,Decreased Stride Length,Decreased Feet Clearance Factors Limiting Gait Function Factors Limiting Decreased Activity Tolerance,Decreased Strength, Gait Function Difficulty Following Directions,Limited Range of Motion ,Pain,Poor Balance,Poor Safety Awareness PT-Balance Assessment Sitting Balance and Reactions Static Sitting Good Balance Ability Dynamic Sitting Fair Balance Ability Standing Balance and Reactions Static Standing Fair Balance Ability Dynamic Standing Fair Balance Ability Device Used FWW M5 PT-IP Objective Assessments Start: 09/29/25 12:24 Freq: NEEDED Status: Active Protocol: Document 09/29/25 10:25 AB (Rec: 09/29/25 12:37 AB Desktop) Orientation Orientation/Cognition Level of Alertness Alert Orientation Name,Place,Situation Language Function Hard of Hearing Ability Safety Awareness Decreased Safety Awareness Memory Description No Deficits Noted Gross Range of Motion Lower Extremity ROM Assessment Within Functional Limits Strength Lower Extremity Strength Hip 4-/5 Knee 4-/5 Muscle Tone Muscle Tone WNL Yes M6 PT-IP Treatment Start: 09/29/25 12:24 Freq: NEEDED Status: Active Protocol: Document 09/29/25 10:25 AB (Rec: 09/29/25 12:37 AB Desktop) Physical Therapy Treatment Education Education Provided Safety M7 PT-IP Assessment and Plan Start: 09/29/25 12:24 Freq: NEEDED Status: Active Protocol: Document 09/29/25 10:25 AB (Rec: 09/29/25 12:37 AB Desktop) PT Summary Assessment and Plan Potential Rehabilitation Fair Potential Status of Condition Evolving at Evaluation Summary Impairments Pain,ROM,Strength,Balance,Coordination,Sensation,Tone, Cognition,Bed Mobility,Transfers,Gait,Activity Tolerance Assessment Summary pt is an 85y/o F who is admitted for SBO. pt with NG tube. pt requiring min A for transfers and ambulation using FWW and presents with decrease activity tolerance affecting mobility independence with increase ambulation unsteadiness with increase distance of ambulation. d/c plan depending on progress. home with assistance + HHPT vs SNF. will continue to assess. Goals Bed Mobility Goal Independent Transfer Goal Independent,Front Wheeled Walker Gait Goal Independent,Front Wheel Walker Gait Distance 100 Other Goals improve ambulation using 4WW or LRAD ~ 200 ft SBA Days to Meet Goals 10 Frequency of Treatment Frequency Of Once a Day Treatment Treatment Plan Physical Therapy Bed Mobility Training,Transfer Training,Gait Training, Treatment Plan Therapeutic Exercise,Balance Retraining,Discharge Planning,Hot or Cold Pack,Neuromuscular Re-ed, Coordination Retraining,Manual Therapy Recommendations To Nursing Amount of Assist 1 Person Assist Needed Discharge Recommendations PT Discharge Home with 21/06 Assist Available,Home Health,SNF Rehab, Recommendations Home vs SNF Equipment Needed for FWW if not safe with 4WW/SPC Home Before Discharge Transportation Needs Private Vehicle,Wheelchair/Cabulance at Discharge - PT assist 1
--- NOTE | 2025-09-29 10:35 | PM.PN.IH.1 ---
Subjective Subjective Date Patient Seen: 09/29/25 Time Patient Seen: 10:35 Interval history: ?I feel much better today?. The patient had several episodes of vomiting yesterday after the Gastrografin challenge, but after reconnecting the NG tube, she has since had no nausea or abdominal pain. She also reports her distention is considerably less. After speaking with NG, that night R.N., overnight, she reported that the patient had multiple bowel movements early this morning. She has remained afebrile with stable vital signs. She is enjoying ice [employer]([facility]). The NG tube continues to put out copious effluent. She denies passing gas, but states she did have several bowel movements. PT is currently working with her. She is wearing her SCDs in his diligent regarding the use of her incentive spirometer. Exam Vital Signs (past 8 hours): - 09/29/25 03:00 09/29/25 08:00 Temperature 97.8 F 97.2 F L Pulse Rate 102 H 84 Respiratory Rate 16 17 Blood Pressure 152/90 H 156/84 H Pulse Oximetry 93 96 Oxygen Flow Rate 0 Oxygen Delivery Method Room Air Oxygen Flow Rate 0 Narrative Exam Narrative: AVSS Alert and oriented x4 Regular rate and rhythm without murmur Respirations improved over yesterday. No wheezes or rales. Bowel sounds also improved. Noted in the bilateral upper quadrants, however, still quiescent in the lower quadrants. Abdomen nontender to palpation. Moves all extremities x4 Objective Labs 09/28/25 18:23 09/28/25 06:12 Labs: Laboratory Results - last 24 hr 09/27/25 09/28/25 17:15 18:23 WBC 9.7 RBC 4.38 Hgb 13.6 Hct 40.8 MCV 93.1 MCH 31.1 MCHC 33.4 RDW 13.5 Plt Count 320 Neut % (Auto) 77.8 H Lymph % (Auto) 12.2 L [place] % (Auto) 9.4 Eos % (Auto) 0.3 L Baso % (Auto) 0.3 Neut # (Auto) 7600 H Lymph # (Auto) 1200 [place] # (Auto) 900 Eos # (Auto) 0 Baso # (Auto) 0 Urine Color Yellow Urine Appearance Sl cloudy Urine pH 6.0 Ur Specific [place] 1.025 Urine Protein Negative Urine Glucose (UA) Negative Urine Ketones Negative Urine Occult Blood 1+ H Urine Nitrate Positive H Urine Bilirubin Negative Urine Urobilinogen 0.2 Ur Leukocyte Esterase Negative Urine RBC 0-1/hpf Urine WBC 5-10/hpf H Ur Squamous Epith Cells 0-1 /hpf Ur Transition Epith Cell Not Reportable Ur Renal Epithelial Cell Not Reportable Calcium Oxalate Crystal Not Reportable Uric Acid Crystals Not Reportable Triple Phos Crystals Not Reportable Other Crystals Not Reportable Amorphous Sediment Not Reportable Urine Bacteria Many (>30) H Hyaline Casts Not Reportable Granular Casts Not Reportable RBC Casts Not Reportable WBC Casts Not Reportable Other Casts Not Reportable Urine Mucus Not Reportable Urine Trichomonas Not Reportable Urine Yeast Not Reportable Urine Sperm Not Reportable Ur Culture Indicated? Specimen cultured Micro UA Comment Vol Urine Centrifuged 10ml (spun) PFSH Medical History Osteopenia determined by x-ray Ankle pain (~2016) Mumps Measles History of chicken pox Family history of colon cancer Family history of breast cancer Family history of stroke Family history of hypertension Family history of diabetes mellitus History of uterine fibroid History of hemorrhoids Hypothyroidism Actinic keratitis Hypertension Vitamin D deficiency Cobalamin deficiency Vitamin B-complex deficiency Hypothyroidism Surgical History History of cosmetic surgery (~1991) History of tonsillectomy (~1957) History of hysterectomy (~1997) Family History Father History of heart attack Stroke Mother Stroke Diabetes mellitus Hypertension Hyperlipidemia Sister COPD (chronic obstructive pulmonary disease) Breast cancer in female Daughter Cancer Social History marital status: number of children: 2 household members: children lives independently: Yes caregiver/support person: Yes pets and animals: Yes (Cat-Stormy) education level: other occupational status: other current occupational exposures/hazards: No rik/advent: Mu-Ism/Mu-Ism special rik needs: No travel history: recent leisure activities: games and reading other: Playing cards seatbelt use: always helmet use: No water heater temp set < 120 deg: Yes working smoke detector in home: Yes carbon monox detector in home: Yes firearms in home: No do you feel safe at home: Yes Smoking Status: Never smoker second hand exposure: No (In the past.) alcohol intake: current substance use type: does not use during the past year weight has: remained stable well-balanced diet: about half the time daily servings fruits/ve-4 caffeine: Yes (2+ drinks per day, 1-2 soda/pop drinks per day) eating out: 1-3 times/week Type(s) of exercise: occasional exercise frequency: 1-2 times per week duration: 45-60 minutes/day additional social history: Travel History: [facility] States- [place], [place], [place]. Assessment & Plan Assessment & Plan narrative: 85-year-old female with partial small bowel obstruction versus ileus -now afebrile; responding well to antimicrobials -urine output considerably improved; responding well to IV fluids. -given the patient noted that the nausea which dramatically worse when the tube was clamped, we will proceed slowly with discontinuation of the NG tube. The patient is in total agreement with this plan. If she has another bowel movement or passes gas, we will clamp the tube this evening to bookkeeping service sales agent how well she does. -continue PT -encourage out of bed, use of incentive spirometer, and use of SCDs -we will attempt a lab draw later this morning or early afternoon and will follow -antimicrobials appropriate for current culture results which revealed g negative bacilli -continue NPO except for scant ice chips. Record ice chip consumption to subtract from NG tube output. Time-Based Coding :: [TOTAL MINUTES] spent with patient and on the chart (including review of chart, obtaining history, exam, reviewing outside data, placing orders, documenting exam and treatment plan, and counseling patient) on [DATE]. 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
--- NOTE | 2025-09-29 10:53 | CM.DPNOTE ---
DCP note AIRLINE TICKET AGENT reviewed EMR per RN, had a BM overnight, NG tube still in, and able to get up to the commode but has not mobilized more than that. per provider in morning rounds, aspiration pneumonia, on IV abx and fluids. here another few days. surgery to manage NG tube P: anticipate dc home when medically stable, timeline unknown. nicolas continue to follow closely in case any DCP needs should arise SAMAN Estrada
[2025-09-29 13:54] LABS: Add Manual Diff / Slide Review NO; Hematocrit 34.4 % (36-46); Hemoglobin 11.6 g/dL (12.0-16.0); Lymphocytes Absolute Auto 1200 /uL (1100-4500); Mean Corpuscular HGB Conc 33.8 % (30-36); Mean Corpuscular Hemoglobin 31.2 PG (26-34); Mean Corpuscular Volume 92.3 fL (80-100); Platelet Count 280 X10^3/uL (150-400)
[2025-09-29 14:07] LABS: Alanine Aminotransferase 23 IU/L (<35); Albumin 3.7 g/dL (3.5-5.0); Albumin Globulin Ratio 1.3 (1.0-2.8); Alkaline Phosphatase 72 U/L (38-126); Blood Urea Nitrogen 32 mg/dL (7-17); Calcium 8.6 mg/dL (8.4-10.2); Carbon Dioxide 30 mmol/L (22-32); Chloride 108 mmol/L (98-107); Estimated Glomerular Filt Rate > 60 mL/min (>60); Globulin 2.8 g/dL (1.7-4.1); Glucose 98 mg/dL (70-99); HEMOLYSIS < 15 (0-50); Magnesium 2.5 mg/dL (1.6-2.3); Potassium 3.2 mmol/L (3.4-5.1); Sodium 145 mmol/L (137-145); Total Protein 6.5 g/dL (6.3-8.2)
[2025-09-29] MEDS: POTASSIUM CHLORIDE IN WATER 10 MEQ/100 ML PIGGYBACK 100 MEQ IV ×3 (16:13→23:14)
--- NOTE | 2025-09-29 18:27 | PC.NURSE ---
Scanned POLST on file states DNR; confirmed with pt that DNR is desired resus status. Informed MD Hernandez.
[2025-09-30] VITALS (9 sets, daily range): BP systolic 141–177; BP diastolic 74–91; PULSE 66–84; RESP 16–19; TEMP 36.1–36.9; O2SAT 94–98
[2025-09-30] MEDS: POTASSIUM CHLORIDE IN WATER 10 MEQ/100 ML PIGGYBACK 100 MEQ IV ×5 (00:40→17:37)
[2025-09-30] MEDS: DEXTROSE 5%-0.9% NS 1,000 ML 100 ML IV (01:23)
[2025-09-30] MEDS: PIPERACILLIN/TAZO 3.375 GM in SODIUM CHLORIDE 0.9% 100 ML IV ×3 (01:59→18:00)
[2025-09-30 05:20] LABS: Alanine Aminotransferase 20 IU/L (<35); Albumin 3.3 g/dL (3.5-5.0); Albumin Globulin Ratio 1.2 (1.0-2.8); Alkaline Phosphatase 65 U/L (38-126); Blood Urea Nitrogen 28 mg/dL (7-17); Calcium 8.4 mg/dL (8.4-10.2); Carbon Dioxide 27 mmol/L (22-32); Chloride 109 mmol/L (98-107); Estimated Glomerular Filt Rate > 60 mL/min (>60); Globulin 2.8 g/dL (1.7-4.1); Glucose 83 mg/dL (70-99); HEMOLYSIS < 15 (0-50); Potassium 3.2 mmol/L (3.4-5.1); Sodium 143 mmol/L (137-145); Total Protein 6.1 g/dL (6.3-8.2)
--- NOTE | 2025-09-30 10:27 | PM.PN.IH.1 ---
Subjective Subjective Date Patient Seen: 09/30/25 Time Patient Seen: 10:27 Interval history: 85-year-old female who was admitted hospital day 5 with ileus versus partial small bowel obstruction. Yesterday the patient was much better. No nausea or vomiting was noted. She was tolerant of ice chips. NG tube reflected this. She worked with PT nicely and was able to ambulate in the hallway. Her urine out put improved dramatically. She rested well last night. Her daughter is in the room with her. She continues to receive antimicrobials for a rather vicious UTI. Exam Vital Signs (past 8 hours): - 09/30/25 05:30 09/30/25 10:16 Temperature 98.5 F Pulse Rate 66 84 Respiratory Rate 16 Blood Pressure 141/80 H 177/77 H Pulse Oximetry 98 Oxygen Flow Rate 0 Oxygen Delivery Method Room Air Oxygen Flow Rate 0 Narrative Exam Narrative: AVSS Alert and oriented x4 Regular rate rhythm without murmur Respirations improved. Now clear bilaterally, with no wheezes rales or rhonchi or suggestion of atelectasis. Abdomen nondistended and nontender. Bowel sounds in all 4 quadrants, however, slightly quiescent. No peritoneal signs. Moves all extremities x4. Objective Labs 09/29/25 13:45 09/30/25 04:53 Labs: Laboratory Results - last 24 hr 09/29/25 09/30/25 09/30/25 13:45 00:34 01:27 PST WBC 8.4 RBC 3.73 L Hgb 11.6 L Hct 34.4 L MCV 92.3 MCH 31.2 MCHC 33.8 RDW 13.7 Plt Count 280 Neut % (Auto) 74.4 Lymph % (Auto) 14.8 L [place] % (Auto) 10.1 Eos % (Auto) 0.4 L Baso % (Auto) 0.3 Neut # (Auto) 6300 Lymph # (Auto) 1200 [place] # (Auto) 800 Eos # (Auto) 0 Baso # (Auto) 0 Sodium 145 Potassium 3.2 L Chloride 108 H Carbon Dioxide 30 BUN 32 H Creatinine 0.89 Estimated GFR > 60 BUN/Creatinine Ratio 36.0 H Glucose 98 POC Whole Bld Glucose 67 L 89 Calcium 8.6 Magnesium 2.5 H Total Bilirubin 0.6 AST 31 ALT 23 Alkaline Phosphatase 72 Total Protein 6.5 Albumin 3.7 Globulin 2.8 Albumin/Globulin Ratio 1.3 09/30/25 09/30/25 04:53 08:43 WBC RBC Hgb Hct MCV MCH MCHC RDW Plt Count Neut % (Auto) Lymph % (Auto) [place] % (Auto) Eos % (Auto) Baso % (Auto) Neut # (Auto) Lymph # (Auto) [place] # (Auto) Eos # (Auto) Baso # (Auto) Sodium 143 Potassium 3.2 L Chloride 109 H Carbon Dioxide 27 BUN 28 H Creatinine 0.78 Estimated GFR > 60 BUN/Creatinine Ratio 35.9 H Glucose 83 POC Whole Bld Glucose 96 Calcium 8.4 Magnesium Total Bilirubin 0.5 AST 27 ALT 20 Alkaline Phosphatase 65 Total Protein 6.1 L Albumin 3.3 L Globulin 2.8 Albumin/Globulin Ratio 1.2 PFSH Medical History Osteopenia determined by x-ray Ankle pain (~2016) Mumps Measles History of chicken pox Family history of colon cancer Family history of breast cancer Family history of stroke Family history of hypertension Family history of diabetes mellitus History of uterine fibroid History of hemorrhoids Hypothyroidism Actinic keratitis Hypertension Vitamin D deficiency Cobalamin deficiency Vitamin B-complex deficiency Hypothyroidism Surgical History History of cosmetic surgery (~1991) History of tonsillectomy (~1957) History of hysterectomy (~1997) Family History Father History of heart attack Stroke Mother Stroke Diabetes mellitus Hypertension Hyperlipidemia Sister COPD (chronic obstructive pulmonary disease) Breast cancer in female Daughter Cancer Social History marital status: number of children: 2 household members: children lives independently: Yes caregiver/support person: Yes pets and animals: Yes (Cat-Stormy) education level: other occupational status: other current occupational exposures/hazards: No rik/yarsanism: Amish/Baptism special rik needs: No travel history: recent leisure activities: games and reading other: Playing cards seatbelt use: always helmet use: No water heater temp set < 120 deg: Yes working smoke detector in home: Yes carbon monox detector in home: Yes firearms in home: No do you feel safe at home: Yes Smoking Status: Never smoker second hand exposure: No (In the past.) alcohol intake: current substance use type: does not use during the past year weight has: remained stable well-balanced diet: about half the time daily servings fruits/ve-4 caffeine: Yes (2+ drinks per day, 1-2 soda/pop drinks per day) eating out: 1-3 times/week Type(s) of exercise: occasional exercise frequency: 1-2 times per week duration: 45-60 minutes/day additional social history: Travel History: [facility]- [place], [place], [place]. Assessment & Plan Assessment & Plan narrative: 85-year-old female admitted with ileus versus partial small bowel obstruction secondary to significant UTI -patient tolerated clamping NG tube last p.m.. Reports no nausea or vomiting. Given that she had a bowel movement this morning, we will remove the nasogastric tube. She will be started on isotonic ensure clear. If she tolerates this, we will then proceed to a clear liquid diet. Both she and her daughter voiced understanding. -the patient was encouraged to continue ambulation about the room, working with PT, and working with incentive spirometry. -continue current antimicrobial -potassium noted to be 3.2 this a.m.. Replacement ordered per hospitalist. -should patient be tolerant of a clear liquid diet with advancement to full liquid tomorrow, we will then consider discharge home. The patient is in agreement. Time-Based Coding :: [TOTAL MINUTES] spent with patient and on the chart (including review of chart, obtaining history, exam, reviewing outside data, placing orders, documenting exam and treatment plan, and counseling patient) on [DATE]. Quality VTE Deep Vein Thrombosis/Pulmonary Embolism Present on Admission: No IH PROFEE Decision Support Manager Document charge(s): No Charge Codes Subsequent inpatient/observation care: 36134
--- NOTE | 2025-09-30 11:55 | P.PN_ITS ---
Subjective Subjective Date Patient Seen: 09/30/25 Interval history: Chief complaint: Abdominal pain nausea vomiting secondary to ileus with aspiration pneumonia History of present illness: 09/26: 85-year-old female whose daughter with sick contact but nausea vomiting abdominal pain presents to the emergency room with nausea vomiting and abdominal pain herself. Workup in the emergency department significant for dilated loops of small bowel consistent with ileus. Emergency provider consulted surgery to render an opinion felt that this was ileus and not a bowel obstruction. Patient admitted for ileus with dehydration secondary to nausea and vomiting and inability to take liquids. Findings in the emergency department significant for imaging demonstrating ileus Hospital course: 09/27: Patient is somewhat better able to tolerate liquids at this time still requiring antiemetics 09/28: Patient developed worsening emesis overnight with increased localized distention of small bowel on KUB NG tube was placed urinalysis and blood cultures obtained. Unfortunately patient vomited after Gastrografin challenge followed by development of low-grade fevers chest x-ray showed a right lower lobe infiltrate improved with incentive spirometry and ambulation as outlined by surgery service ceftriaxone escalated to Zosyn in the evening IV fluids have been continuing boluses urine output 2680 overnight 09/29: Patient feeling better appears more asking if she can drink something did have emesis last night large liquid bowel movement Chest x-ray shows interval improvement of the right lower lobe and right middle lobe infiltrates white blood cell count has de-escalated from 16 down to 12.3 down to 9.7 urine output 24 hours 1200 cc and 2000 cc of gastric drainage 09/30: Significantly less nausea overnight early this morning NG tube was clamped and only 200 cc or less had accumulated NG tube was pulled by surgery service bowel movement overnight consensus was to to begin isotonic oral feeding with ensure Clear diluted 3 along with water and advance diet as tolerated Urine culture E coli: 1. Escherichia coli M.I.C. RX --------- --- * Amoxicillin/Clavulanate 4 S * Ampicillin >=32 R * Cefazolin 4 I * Ceftriaxone <=0.25 S * Ciprofloxacin 0.5 I * Ertapenem <=0.12 S * Gentamicin >=16 R * Levofloxacin 1 I * Meropenem <=0.25 S * Nitrofurantoin <=16 S * Tetracycline >=16 R * Trimethoprim/Sulfamethoxazole <=20 S * Piperacillin/Tazobactam <=4 S Review of systems: No further fevers chills No further nausea Occasional cough nonproductive No chest pain Physical exam: Very pleasant elderly female obviously uncomfortable HEENT unremarkable No labored respirations Right middle lobe and right posterior basilar crackles Abdomen very slightly tender soft nondistended bowel sounds present Extremities no edema Assessment and plan: Ileus with with increasing nausea and vomiting * Continue IV fluids supportive care symptom management * Nasogastric suction * Escalated antibiotics to Zosyn for suspicion of aspiration can probably deescalate to oral Augmentin in the next day or 2 * Chest x-ray shows interval improvement of right lower lobe infiltrate Suspected urinary tract infection: * Urine culture preliminary Gram-negative rods * and blood culture no growth 24 hours * Should be covered with Zosyn DVT prophylaxis * Not indicated patient is ambulatory Code status * Full code Disposition: * Inpatient until above conditions resolve anticipate 2-3 more days possible discharge Tuesday 10/02 Time based billing: * 35 minutes were involved in evaluation of the face including [id number] evaluation physical examination review of records review of objective laboratory and imaging findings Exam Vital Signs (past 8 hours): - 09/30/25 05:30 09/30/25 10:16 09/30/25 11:00 Temperature 98.5 F 98.4 F Pulse Rate 66 84 67 Respiratory Rate 16 16 Blood Pressure 141/80 H 177/77 H 177/77 H Pulse Oximetry 98 98 Oxygen Flow Rate 0 Oxygen Delivery Method Room Air Oxygen Flow Rate 0 Objective Labs 09/29/25 13:45 09/30/25 04:53 Labs: Laboratory Results - last 24 hr 09/29/25 09/30/25 09/30/25 13:45 00:34 01:27 PST WBC 8.4 RBC 3.73 L Hgb 11.6 L Hct 34.4 L MCV 92.3 MCH 31.2 MCHC 33.8 RDW 13.7 Plt Count 280 Neut % (Auto) 74.4 Lymph % (Auto) 14.8 L [place] % (Auto) 10.1 Eos % (Auto) 0.4 L Baso % (Auto) 0.3 Neut # (Auto) 6300 Lymph # (Auto) 1200 [place] # (Auto) 800 Eos # (Auto) 0 Baso # (Auto) 0 Sodium 145 Potassium 3.2 L Chloride 108 H Carbon Dioxide 30 BUN 32 H Creatinine 0.89 Estimated GFR > 60 BUN/Creatinine Ratio 36.0 H Glucose 98 POC Whole Bld Glucose 67 L 89 Calcium 8.6 Magnesium 2.5 H Total Bilirubin 0.6 AST 31 ALT 23 Alkaline Phosphatase 72 Total Protein 6.5 Albumin 3.7 Globulin 2.8 Albumin/Globulin Ratio 1.3 09/30/25 09/30/25 04:53 08:43 WBC RBC Hgb Hct MCV MCH MCHC RDW Plt Count Neut % (Auto) Lymph % (Auto) [place] % (Auto) Eos % (Auto) Baso % (Auto) Neut # (Auto) Lymph # (Auto) [place] # (Auto) Eos # (Auto) Baso # (Auto) Sodium 143 Potassium 3.2 L Chloride 109 H Carbon Dioxide 27 BUN 28 H Creatinine 0.78 Estimated GFR > 60 BUN/Creatinine Ratio 35.9 H Glucose 83 POC Whole Bld Glucose 96 Calcium 8.4 Magnesium Total Bilirubin 0.5 AST 27 ALT 20 Alkaline Phosphatase 65 Total Protein 6.1 L Albumin 3.3 L Globulin 2.8 Albumin/Globulin Ratio 1.2 [facility] Medical History Osteopenia determined by x-ray Ankle pain (~2016) Mumps Measles History of chicken pox Family history of colon cancer Family history of breast cancer Family history of stroke Family history of hypertension Family history of diabetes mellitus History of uterine fibroid History of hemorrhoids Hypothyroidism Actinic keratitis Hypertension Vitamin D deficiency Cobalamin deficiency Vitamin B-complex deficiency Hypothyroidism Surgical History History of cosmetic surgery (~1991) History of tonsillectomy (~1957) History of hysterectomy (~1997) Family History Father History of heart attack Stroke Mother Stroke Diabetes mellitus Hypertension Hyperlipidemia Sister COPD (chronic obstructive pulmonary disease) Breast cancer in female Daughter Cancer Social History marital status: number of children: 2 household members: children lives independently: Yes caregiver/support person: Yes pets and animals: Yes (Cat-Stormy) education level: other occupational status: other current occupational exposures/hazards: No rik/yazidi: Cheondoism/Yazdanism special rik needs: No travel history: recent leisure activities: games and reading other: Playing cards seatbelt use: always helmet use: No water heater temp set < 120 deg: Yes working smoke detector in home: Yes carbon monox detector in home: Yes firearms in home: No do you feel safe at home: Yes Smoking Status: Never smoker second hand exposure: No (In the past.) alcohol intake: current substance use type: does not use during the past year weight has: remained stable well-balanced diet: about half the time daily servings fruits/ve-4 caffeine: Yes (2+ drinks per day, 1-2 soda/pop drinks per day) eating out: 1-3 times/week Type(s) of exercise: occasional exercise frequency: 1-2 times per week duration: 45-60 minutes/day additional social history: Travel History: [facility]- [place], [place], [place]. Assessment & Plan Time-Based Coding :: [TOTAL MINUTES] spent with patient and on the chart (including review of chart, obtaining history, exam, reviewing outside data, placing orders, documenting exam and treatment plan, and counseling patient) on [DATE]. Quality VTE Deep Vein Thrombosis/Pulmonary Embolism Present on Admission: No
--- NOTE | 2025-09-30 13:22 | CM.DPC ---
DCP Cont: Per Surgeon and MD, pt with minimal output through NGT and was clamped and then able to be removed today and starting on clears to see how pt tolerates and encouraging ongoing ambulation. Per PT yesterday, pending pt progress likely home with assist and HH. PT still to work with pt more today to see how she has progressed. SW attempted to meet bedside but pt getting care and staff in room and SW to return to inquire about HH and any further identified discharge planning needs. SAMAN Avendano
--- NOTE | 2025-09-30 15:17 | PT.IPTN ---
Current Diagnoses Ileus, unspecified (09/26/25) Generalized abdominal pain (09/26/25) Physical Therapy Treatment Note M2 PT-IP Current Condition Start: 09/29/25 12:24 Freq: NEEDED Status: Active Protocol: Document 09/29/25 10:25 AB (Rec: 09/29/25 12:37 AB Desktop) Physical Therapy Current Condition Current Condition Evaluation Date 09/29/25 Treatment Diagnosis SBO; UTI; difficulty in walking Onset Date 09/26/25 M3 PT-IP Subjective Start: 09/29/25 12:24 Freq: NEEDED Status: Active Protocol: Document 09/30/25 14:25 [facility] (Rec: 09/30/25 15:17 [facility] [id number]) Subjective Physical Therapy Visit Type Visit Start Time 14:25 Visit Stop Time 13:10 Number of BOARD LINING MACHINE OPERATOR Visits 0 Physical Therapy Visit Comments Patient Comments Pt agrees to get up M4 PT-IP Mobility and Gait Start: 09/29/25 12:24 Freq: NEEDED Status: Active Protocol: Document 09/30/25 14:25 [facility] (Rec: 09/30/25 15:17 [facility] [id number]) PT-Bed Mobility Assessment Supine to Sit Supine to Sit Standby Assistance Sit to Supine Sit to Supine Standby Assistance Scooting Scooting to Edge of Independent Bed Scooting Up and Down Standby Assistance in Bed PT-Transfer Assessment Sit to and From Stand Sit to and from Standby Assistance,Use of Upper Extremities Stand Equipment Transfer Assistive Gait Belt,Front Wheeled Walker,4 Wheeled Walker Device Orthotic/Prosthetic No Devices or Brace: Comments Mobility Comments supine to sit SBA w/min cues from flat bed. scoot to EOB SBA then sit to stand SBA. Pt amb with FWW about 30ft then sat EOB CGA d/t PT going to get 4WW as she lifts FWW often. sit to stand SBA w/cues for break use w/4WW then amb w/4WW 220ft SBA w/min cues for posture and lifting feet. Cues for break use to sit then SBA for sit to supine. Pt has to use bathroom so SBA for supine to sit and sit to stand again. Pt asks to not use AD. Pt amb w/CGA to bathroom and tends to reach to doorway etc. Encouraged pt to use 4WW In the future as this is unsafe. Pt able to indep seated then stand SBA and pull up briefs and walk back to bed CGA. SBA for sit to supine and left with call light in reach and bed alarm on. Gait Assessment Gait Gait Assistance Standby Assistance Required: Distance (Feet) 220 Able to Maintain Yes Weight Bearing Status During Gait Assistive Devices Assistive Device Gait Belt,Front Wheeled Walker Orthotic/Prosthetic No Devices or Brace: Gait Deviations General Gait Pattern Decreased Stride Length,Decreased Feet Clearance,Flexed Trunk Factors Limiting Gait Function Factors Limiting Decreased Activity Tolerance,Decreased Strength,Limited Gait Function Range of Motion,Poor Balance,Poor Safety Awareness M5 PT-IP Objective Assessments Start: 09/29/25 12:24 Freq: NEEDED Status: Active Protocol: Document 09/29/25 10:25 AB (Rec: 09/29/25 12:37 AB Desktop) Orientation Orientation/Cognition Level of Alertness Alert Orientation Name,Place,Situation Language Function Hard of Hearing Ability Safety Awareness Decreased Safety Awareness Memory Description No Deficits Noted Gross Range of Motion Lower Extremity ROM Assessment Within Functional Limits Strength Lower Extremity Strength Hip 4-/5 Knee 4-/5 Muscle Tone Muscle Tone WNL Yes M6 PT-IP Treatment Start: 09/29/25 12:24 Freq: NEEDED Status: Active Protocol: Document 09/30/25 14:25 [facility] (Rec: 09/30/25 15:17 [facility] [id number]) Physical Therapy Treatment Education Education Provided Safety M7 PT-IP Assessment and Plan Start: 09/29/25 12:24 Freq: NEEDED Status: Active Protocol: Document 09/30/25 14:25 [facility] (Rec: 09/30/25 15:17 [facility] [id number]) PT Summary Assessment and Plan Summary Impairments Pain,ROM,Strength,Balance,Coordination,Sensation,Tone, Cognition,Bed Mobility,Transfers,Gait,Activity Tolerance Assessment Summary Pt demonstrates much improved mobility today with mostly SBA with cues for safety. She showed improved activity tolerance and was able to toilet independently . At this time, pt would benefit from home with assistance and w/HH Goals Bed Mobility Goal Independent Transfer Goal Independent,Front Wheeled Walker Gait Goal Independent,Front Wheel Walker Gait Distance 100 Other Goals improve ambulation using 4WW or LRAD ~ 200 ft SBA Days to Meet Goals 10 Frequency of Treatment Frequency Of Once a Day Treatment Treatment Plan Physical Therapy Bed Mobility Training,Transfer Training,Gait Training, Treatment Plan Therapeutic Exercise,Balance Retraining,Discharge Planning,Hot or Cold Pack,Neuromuscular Re-ed, Coordination Retraining,Manual Therapy Recommendations To Nursing Amount of Assist 1 Person Assist Needed Discharge Recommendations PT Discharge Home with Assistance,Home Health Recommendations Transportation Needs Private Vehicle at Discharge - PT assist 1
[2025-09-30] MEDS: SODIUM CHLORIDE 0.9% 1,000 ML 100 ML IV ×2 (17:44→19:52)
[2025-09-30 18:19] LABS: Add Manual Diff / Slide Review NO; Hematocrit 33.1 % (36-46); Hemoglobin 11.2 g/dL (12.0-16.0); Lymphocytes Absolute Auto 1700 /uL (1100-4500); Mean Corpuscular HGB Conc 33.9 % (30-36); Mean Corpuscular Hemoglobin 30.9 PG (26-34); Mean Corpuscular Volume 91.1 fL (80-100); Platelet Count 300 X10^3/uL (150-400)
[2025-10-01] VITALS (7 sets, daily range): BP systolic 128–175; BP diastolic 80–94; PULSE 65–72; RESP 14–17; TEMP 36.3–37.1; O2SAT 95–97
[2025-10-01] MEDS: PIPERACILLIN/TAZO 3.375 GM in SODIUM CHLORIDE 0.9% 100 ML IV ×2 (01:50→10:11)
[2025-10-01] MEDS: LEVOTHYROXINE 50 MCG TABLET PO (06:46)
--- NOTE | 2025-10-01 07:48 | PM.PN.IH.1 ---
Subjective Subjective Date Patient Seen: 10/01/25 Time Patient Seen: 07:48 Interval history: Tolerating clears without n/v Exam Vital Signs (past 8 hours): - 10/01/25 01:00 10/01/25 05:00 Temperature 98.2 F 97.6 F Pulse Rate 65 67 Respiratory Rate 16 17 Blood Pressure 175/87 H 158/85 H Pulse Oximetry 95 97 Oxygen Flow Rate 0 Oxygen Delivery Method Room Air Oxygen Flow Rate 0 GI Palpation: soft (non-peritoneal exam) Objective Labs 09/30/25 17:53 09/30/25 04:53 Labs: Laboratory Results - last 24 hr 09/30/25 09/30/25 09/30/25 15:16 17:53 19:27 WBC 9.6 RBC 3.64 L Hgb 11.2 L Hct 33.1 L MCV 91.1 MCH 30.9 MCHC 33.9 RDW 13.5 Plt Count 300 Neut % (Auto) 70.3 Lymph % (Auto) 17.6 L [place] % (Auto) 9.5 Eos % (Auto) 1.7 L Baso % (Auto) 0.9 Neut # (Auto) 6800 Lymph # (Auto) 1700 [place] # (Auto) 900 Eos # (Auto) 200 Baso # (Auto) 100 POC Whole Bld Glucose 119 H 93 10/01/25 00:46 WBC RBC Hgb Hct MCV MCH MCHC RDW Plt Count Neut % (Auto) Lymph % (Auto) [place] % (Auto) Eos % (Auto) Baso % (Auto) Neut # (Auto) Lymph # (Auto) [place] # (Auto) Eos # (Auto) Baso # (Auto) POC Whole Bld Glucose 90 PFSH Medical History Osteopenia determined by x-ray Ankle pain (~2016) Mumps Measles History of chicken pox Family history of colon cancer Family history of breast cancer Family history of stroke Family history of hypertension Family history of diabetes mellitus History of uterine fibroid History of hemorrhoids Hypothyroidism Actinic keratitis Hypertension Vitamin D deficiency Cobalamin deficiency Vitamin B-complex deficiency Hypothyroidism Surgical History History of cosmetic surgery (~1991) History of tonsillectomy (~1957) History of hysterectomy (~1997) Family History Father History of heart attack Stroke Mother Stroke Diabetes mellitus Hypertension Hyperlipidemia Sister COPD (chronic obstructive pulmonary disease) Breast cancer in female Daughter Cancer Social History marital status: number of children: 2 household members: children lives independently: Yes caregiver/support person: Yes pets and animals: Yes (Cat-Stormy) education level: other occupational status: other current occupational exposures/hazards: No rik/restorationism: Caodaism/Scientology special rik needs: No travel history: recent leisure activities: games and reading other: Playing cards seatbelt use: always helmet use: No water heater temp set < 120 deg: Yes working smoke detector in home: Yes carbon monox detector in home: Yes firearms in home: No do you feel safe at home: Yes Smoking Status: Never smoker second hand exposure: No (In the past.) alcohol intake: current substance use type: does not use during the past year weight has: remained stable well-balanced diet: about half the time daily servings fruits/ve-4 caffeine: Yes (2+ drinks per day, 1-2 soda/pop drinks per day) eating out: 1-3 times/week Type(s) of exercise: occasional exercise frequency: 1-2 times per week duration: 45-60 minutes/day additional social history: Travel History: [facility]- [place], [place], [place]. Assessment & Plan Assessment and plan (1) Ileus, unspecified: Status: Acute (2) Urinary tract infection: Qualifiers: Urinary tract infection type: site unspecified Hematuria presence: without hematuria Qualified Code(s): N39.0 - Urinary tract infection, site not specified Status: Acute Plan UTI/ileus - E coli sensitive to Zosyn Non-obstructive Tolerating clears, recommend diet advancement WBC down from 16 to 9 with IV abx Time-Based Coding :: [TOTAL MINUTES] spent with patient and on the chart (including review of chart, obtaining history, exam, reviewing outside data, placing orders, documenting exam and treatment plan, and counseling patient) on [DATE]. Quality VTE Deep Vein Thrombosis/Pulmonary Embolism Present on Admission: No IH PROFEE Residential Building Inspector Document charge(s): Yes Charge Codes Subsequent inpatient/observation care: [id number]
--- NOTE | 2025-10-01 07:56 | P.PN_ITS ---
Subjective Subjective Date Patient Seen: 10/01/25 Interval history: Chief complaint: Abdominal pain nausea vomiting secondary to ileus with aspiration pneumonia History of present illness: 09/26: 85-year-old female whose daughter with sick contact but nausea vomiting abdominal pain presents to the emergency room with nausea vomiting and abdominal pain herself. Workup in the emergency department significant for dilated loops of small bowel consistent with ileus. Emergency provider consulted surgery to render an opinion felt that this was ileus and not a bowel obstruction. Patient admitted for ileus with dehydration secondary to nausea and vomiting and inability to take liquids. Findings in the emergency department significant for imaging demonstrating ileus Hospital course: 09/27: Patient is somewhat better able to tolerate liquids at this time still requiring antiemetics 09/28: Patient developed worsening emesis overnight with increased localized distention of small bowel on KUB NG tube was placed urinalysis and blood cultures obtained. Unfortunately patient vomited after Gastrografin challenge followed by development of low-grade fevers chest x-ray showed a right lower lobe infiltrate improved with incentive spirometry and ambulation as outlined by surgery service ceftriaxone escalated to Zosyn in the evening IV fluids have been continuing boluses urine output 2680 overnight 09/29: Patient feeling better appears more asking if she can drink something did have emesis last night large liquid bowel movement Chest x-ray shows interval improvement of the right lower lobe and right middle lobe infiltrates white blood cell count has de-escalated from 16 down to 12.3 down to 9.7 urine output 24 hours 1200 cc and 2000 cc of gastric drainage 09/30: Significantly less nausea overnight early this morning NG tube was clamped and only 200 cc or less had accumulated NG tube was pulled by surgery service bowel movement overnight consensus was to to begin isotonic oral feeding with ensure Clear diluted 3 along with water and advance diet as tolerated Urine culture E coli: 1. Escherichia coli M.I.C. RX --------- --- * Amoxicillin/Clavulanate 4 S * Ampicillin >=32 R * Cefazolin 4 I * Ceftriaxone <=0.25 S * Ciprofloxacin 0.5 I * Ertapenem <=0.12 S * Gentamicin >=16 R * Levofloxacin 1 I * Meropenem <=0.25 S * Nitrofurantoin <=16 S * Tetracycline >=16 R * Trimethoprim/Sulfamethoxazole <=20 S * Piperacillin/Tazobactam <=4 S 10/01: White blood count 9.6, hemoglobin 11.2. Blood pressure 158/85. Potassium level 3.2. Forty of potassium chloride will be given today. She tells me that she lives in [place] with her daughter and follows up with Dr. Jacob. She is feeling somewhat better with the NG tube out and beginning to eat. Physical exam: Very pleasant elderly female fully oriented and without distress HEENT unremarkable Lungs are clear to auscultation bilaterally. Heart is regular rate and rhythm without murmur Abdomen very slightly tender soft nondistended bowel sounds present Extremities no edema Assessment and plan: Ileus with with increasing nausea and vomiting * Continue IV fluids supportive care symptom management * Nasogastric suction was helpful and has been stopped. * Escalated antibiotics to Zosyn for suspicion of aspiration can deescalate to oral Augmentin now * Chest x-ray shows interval improvement of right lower lobe infiltrate Suspected urinary tract infection: * Urine culture E coli sensitive to ceftriaxone, Zosyn and Augmentin * and blood culture no growth 24 hours DVT prophylaxis --Not indicated patient is ambulatory Code status --Full code Disposition: * discharge Tuesday 10/02, discussed with General surgery and with the patient Exam Vital Signs (past 8 hours): - 10/01/25 01:00 10/01/25 05:00 Temperature 98.2 F 97.6 F Pulse Rate 65 67 Respiratory Rate 16 17 Blood Pressure 175/87 H 158/85 H Pulse Oximetry 95 97 Oxygen Flow Rate 0 Oxygen Delivery Method Room Air Oxygen Flow Rate 0 Objective Labs 09/30/25 17:53 09/30/25 04:53 Labs: Laboratory Results - last 24 hr 09/30/25 09/30/25 09/30/25 15:16 17:53 19:27 WBC 9.6 RBC 3.64 L Hgb 11.2 L Hct 33.1 L MCV 91.1 MCH 30.9 MCHC 33.9 RDW 13.5 Plt Count 300 Neut % (Auto) 70.3 Lymph % (Auto) 17.6 L [place] % (Auto) 9.5 Eos % (Auto) 1.7 L Baso % (Auto) 0.9 Neut # (Auto) 6800 Lymph # (Auto) 1700 [place] # (Auto) 900 Eos # (Auto) 200 Baso # (Auto) 100 POC Whole Bld Glucose 119 H 93 10/01/25 00:46 WBC RBC Hgb Hct MCV MCH MCHC RDW Plt Count Neut % (Auto) Lymph % (Auto) [place] % (Auto) Eos % (Auto) Baso % (Auto) Neut # (Auto) Lymph # (Auto) [place] # (Auto) Eos # (Auto) Baso # (Auto) POC Whole Bld Glucose 90 PFSH Medical History Osteopenia determined by x-ray Ankle pain (~2016) Mumps Measles History of chicken pox Family history of colon cancer Family history of breast cancer Family history of stroke Family history of hypertension Family history of diabetes mellitus History of uterine fibroid History of hemorrhoids Hypothyroidism Actinic keratitis Hypertension Vitamin D deficiency Cobalamin deficiency Vitamin B-complex deficiency Hypothyroidism Surgical History History of cosmetic surgery (~1991) History of tonsillectomy (~1957) History of hysterectomy (~1997) Family History Father History of heart attack Stroke Mother Stroke Diabetes mellitus Hypertension Hyperlipidemia Sister COPD (chronic obstructive pulmonary disease) Breast cancer in female Daughter Cancer Social History marital status: number of children: 2 household members: children lives independently: Yes caregiver/support person: Yes pets and animals: Yes (Cat-Stormy) education level: other occupational status: other current occupational exposures/hazards: No rik/buddhism: Rastafari/Confucianist special rik needs: No travel history: recent leisure activities: games and reading other: Playing cards seatbelt use: always helmet use: No water heater temp set < 120 deg: Yes working smoke detector in home: Yes carbon monox detector in home: Yes firearms in home: No do you feel safe at home: Yes Smoking Status: Never smoker second hand exposure: No (In the past.) alcohol intake: current substance use type: does not use during the past year weight has: remained stable well-balanced diet: about half the time daily servings fruits/ve-4 caffeine: Yes (2+ drinks per day, 1-2 soda/pop drinks per day) eating out: 1-3 times/week Type(s) of exercise: occasional exercise frequency: 1-2 times per week duration: 45-60 minutes/day additional social history: Travel History: [facility]- [place], [place], [place]. Assessment & Plan Time-Based Coding :: [TOTAL MINUTES] spent with patient and on the chart (including review of chart, obtaining history, exam, reviewing outside data, placing orders, documenting exam and treatment plan, and counseling patient) on [DATE]. Quality VTE Deep Vein Thrombosis/Pulmonary Embolism Present on Admission: No
[2025-10-01] MEDS: POTASSIUM CHLORIDE 20 MEQ TAB 40 MEQ PO (09:14)
--- NOTE | 2025-10-01 11:21 | DIET.CONS ---
Dietary Consultation Note Admission Date: 09/26/2025 06:26 Assessment: 85 y F admitted for ileus. Dietitian screened for LOS. Per surgeon in rounds, pt now with resolving ileus. Diet to be advanced as tolerated. Ht: 167.64 cm Wt: 81.647 kg BMI: 29.0 UBW: 84.425 kg on 01/18/25 (-3% weight loss within 1 yr, non-significant) Last BM: 10/01/25 (10/01/25 09:53) MNA: Gasper Score: 20 Diet: 10/01/25 Breakfast Clear Liquid Diet Diet Modifications: Nutrition Percent Meal Consumed 0% 09/30/25 15:00 Percent Meal Consumed 0% 09/30/25 11:00 Labs: RBC 3.64 X10^6/uL (4.0-5.2) L 09/30/25 17:53 Hgb 11.2 g/dL (12.0-16.0) L 09/30/25 17:53 Hct 33.1 % (36-46) L 09/30/25 17:53 Creatinine 0.78 mg/dL (0.52-1.04) 09/30/25 04:53 Nutrition Diagnosis: Inadequate oral intakes r/t altered GI function aeb ileus with diet NPO or clears for 5 days Interventions: Ensure clears with meals, when diet advanced per surgeon will trial Ensure+ EER: 1650 kcals (20kcal/kg per BMI) 75 g protein (1g/kg adjusted IBW) Monitoring/Evaluations: PO intakes, diet advancement Electronically Signed by: Nasrin Jin 10/01/25 11:21 Clinical Dietitian [address] [address]
--- NOTE | 2025-10-01 15:36 | CM.DPC ---
DCP Cont: Per MD and Surgeon, pt making good progress and illeus resolving and tolerating advancing diet with plan of discharge home tomorrow and request SW assist with giving family information about bedside commode. SW attempted to meet bedside with pt and Dtr to provide Soroptomist info for tomorrow but Dtr gone and pt sleeping soundly. SAMAN Avendano
[2025-10-01] MEDS: AMOXICILLIN/CLAV 875/125 MG 1 TAB PO (20:07)
[2025-10-02 05:56] LABS: Add Manual Diff / Slide Review NO; Hematocrit 32.8 % (36-46); Hemoglobin 11.2 g/dL (12.0-16.0); Lymphocytes Absolute Auto 1900 /uL (1100-4500); Mean Corpuscular HGB Conc 34.1 % (30-36); Mean Corpuscular Hemoglobin 31.4 PG (26-34); Mean Corpuscular Volume 91.9 fL (80-100); Platelet Count 269 X10^3/uL (150-400)
[2025-10-02 05:59] LABS: Blood Urea Nitrogen 13 mg/dL (7-17); Calcium 8.1 mg/dL (8.4-10.2); Carbon Dioxide 24 mmol/L (22-32); Chloride 104 mmol/L (98-107); Estimated Glomerular Filt Rate > 60 mL/min (>60); Glucose 89 mg/dL (70-99); HEMOLYSIS < 15 (0-50); Potassium 3.0 mmol/L (3.4-5.1); Sodium 134 mmol/L (137-145)
[2025-10-02] MEDS: LEVOTHYROXINE 50 MCG TABLET PO (06:55)
[2025-10-02 08:00] VITALS: BP 156/88; PULSE 66; RESP 16; TEMP 35.9; O2SAT 96
--- NOTE | 2025-10-02 08:10 | P.DS_ITS ---
History of Present Illness History of Present Illness Date Patient Seen: 10/02/25 Chief complaint: Abdominal Pain Narrative: 85F with PMH of HTN and hypothyroidism comes to ED with bilateral LBP since MN and central abdominal pain that is not sharp or crampy. There has been no dysuria, melena, diarrhea, constipation, nausea, vomiting, fever, chills, sweats, dyspnea. or cough. Labs were unremarkable. CT showed possible small bowel obstruction vs ileus but official radiology read is pending. ED attending spoke with on-call surgeon who will see patient but did not think NG tube placement was necessary at this time. Discharge Providers Provider Date of admission: 09/26/25 06:26 Discharge Date: 10/02/25 Primary care physician: ISABELL Ramirez-INOCENCIA Consults: 09/28/25 12:26 Consult to Physical Therapy Evaluate & Treat Comment: Provider states okay to clamp NG and ambulate Physician Instructions: Evaluate and Treat Discharge provider: Freddy Ramon MD Summary Hospital Course Hospital Course: 09/26: 85-year-old female whose daughter with sick contact but nausea vomiting abdominal pain presents to the emergency room with nausea vomiting and abdominal pain herself. Workup in the emergency department significant for dilated loops of small bowel consistent with ileus. Emergency provider consulted surgery to render an opinion felt that this was ileus and not a bowel obstruction. Patient admitted for ileus with dehydration secondary to nausea and vomiting and inability to take liquids. Findings in the emergency department significant for imaging demonstrating ileus Hospital course: 09/27: Patient is somewhat better able to tolerate liquids at this time still requiring antiemetics 09/28: Patient developed worsening emesis overnight with increased localized distention of small bowel on KUB NG tube was placed urinalysis and blood cultures obtained. Unfortunately patient vomited after Gastrografin challenge followed by development of low-grade fevers chest x-ray showed a right lower lobe infiltrate improved with incentive spirometry and ambulation as outlined by surgery service ceftriaxone escalated to Zosyn in the evening IV fluids have been continuing boluses urine output 2680 overnight 09/29: Patient feeling better appears more asking if she can drink something did have emesis last night large liquid bowel movement Chest x-ray shows interval improvement of the right lower lobe and right middle lobe infiltrates white blood cell count has de-escalated from 16 down to 12.3 down to 9.7 urine output 24 hours 1200 cc and 2000 cc of gastric drainage 09/30: Significantly less nausea overnight early this morning NG tube was clamped and only 200 cc or less had accumulated NG tube was pulled by surgery service bowel movement overnight consensus was to to begin isotonic oral feeding with ensure Clear diluted 3 along with water and advance diet as tolerated Urine culture E coli: 1. Escherichia coli M.I.C. RX --------- --- * Amoxicillin/Clavulanate 4 S * Ampicillin >=32 R * Cefazolin 4 I * Ceftriaxone <=0.25 S * Ciprofloxacin 0.5 I * Ertapenem <=0.12 S * Gentamicin >=16 R * Levofloxacin 1 I * Meropenem <=0.25 S * Nitrofurantoin <=16 S * Tetracycline >=16 R * Trimethoprim/Sulfamethoxazole <=20 S * Piperacillin/Tazobactam <=4 S 10/01: White blood count 9.6, hemoglobin 11.2. Blood pressure 158/85. Potassium level 3.2. Forty of potassium chloride will be given today. She tells me that she lives in [place] with her daughter and follows up with Dr. Jacob. She is feeling somewhat better with the NG tube out and beginning to eat. 10/02: She continues to feel quite well and is eager to go home. Unfortunately her potassium came back at 3.0 this morning so she received 2 - 40 mEq KCl oral doses and the potassium came up to 3.9 when rechecked in the evening. This is attributed to her NG tube, gastric aspiration producing a significant potassium deficit. She will be going home on Augmentin to cover the UTI and the possible pneumonia. Physical exam: Very pleasant elderly female fully oriented and without distress HEENT unremarkable Lungs are clear to auscultation bilaterally. Heart is regular rate and rhythm without murmur Extremities no edema Ileus with with nausea and vomiting * Treated with nasogastric suction, IV fluids, Zosyn and surgical consultation. Symptoms cleared, she has been tolerating oral diet and will be going home. * Chest x-ray shows interval improvement of right lower lobe infiltrate Suspected urinary tract infection: * Urine culture E coli sensitive to ceftriaxone, Zosyn and Augmentin * and blood culture no growth 24 hours * Complete Augmentin course at home. Hypokalemia -likely related to several days of NG tube gastric aspiration producing potassium deficit. -potassium recovered 3.9 on day of discharge. Status at Discharge Cognitive/behavioral status at discharge: at baseline, oriented Functional status at discharge: independent ambulation Overall status at discharge: patient is back to baseline Time Spent with Patient Time spent: Less than 30 minutes Exam Vital Signs (past 8 hours): Oxygen Delivery Method Room Air Oxygen Flow Rate 0 Objective Labs 10/02/25 04:35 10/02/25 16:38 Labs: Laboratory Results - last 24 hr 10/02/25 04:35 WBC 7.1 RBC 3.56 L Hgb 11.2 L Hct 32.8 L MCV 91.9 MCH 31.4 MCHC 34.1 RDW 13.4 Plt Count 269 Neut % (Auto) 59.6 Lymph % (Auto) 26.9 [place] % (Auto) 9.5 Eos % (Auto) 3.4 Baso % (Auto) 0.6 Neut # (Auto) 4200 Lymph # (Auto) 1900 [place] # (Auto) 700 Eos # (Auto) 200 Baso # (Auto) 0 Sodium 134 L Potassium 3.0 L Chloride 104 Carbon Dioxide 24 BUN 13 Creatinine 0.70 Estimated GFR > 60 BUN/Creatinine Ratio 18.6 Glucose 89 Calcium 8.1 L PFSH Medical History Osteopenia determined by x-ray Ankle pain (~2016) Mumps Measles History of chicken pox Family history of colon cancer Family history of breast cancer Family history of stroke Family history of hypertension Family history of diabetes mellitus History of uterine fibroid History of hemorrhoids Hypothyroidism Actinic keratitis Hypertension Vitamin D deficiency Cobalamin deficiency Vitamin B-complex deficiency Hypothyroidism Surgical History History of cosmetic surgery (~1991) History of tonsillectomy (~1957) History of hysterectomy (~1997) Family History Father History of heart attack Stroke Mother Stroke Diabetes mellitus Hypertension Hyperlipidemia Sister COPD (chronic obstructive pulmonary disease) Breast cancer in female Daughter Cancer Social History marital status: number of children: 2 household members: children lives independently: Yes caregiver/support person: Yes pets and animals: Yes (Cat-Stormy) education level: other occupational status: other current occupational exposures/hazards: No rik/caodaism: Latter Day/Hinduism special rik needs: No travel history: recent leisure activities: games and reading other: Playing cards seatbelt use: always helmet use: No water heater temp set < 120 deg: Yes working smoke detector in home: Yes carbon monox detector in home: Yes firearms in home: No do you feel safe at home: Yes Smoking Status: Never smoker second hand exposure: No (In the past.) alcohol intake: current substance use type: does not use during the past year weight has: remained stable well-balanced diet: about half the time daily servings fruits/ve-4 caffeine: Yes (2+ drinks per day, 1-2 soda/pop drinks per day) eating out: 1-3 times/week Type(s) of exercise: occasional exercise frequency: 1-2 times per week duration: 45-60 minutes/day additional social history: Travel History: [facility]- [place], [place], [place]. Discharge Plan Discharge Plan Patient Disposition: Home Provider Discharge Comment: Follow up in one week with DILLAN Rea. Discharge orders & Medications Prescriptions: New amoxicillin-pot clavulanate 875-125 mg Tablet 1 tab PO BID Qty: 14 0RF Continued atorvastatin 40 mg tablet See Rx Instructions .ROUTE .COMPLEX Qty: 90 3RF Dose Instruction: TAKE 1 TABLET BY MOUTH DAILY Rx Instructions: TAKE 1 TABLET BY MOUTH DAILY levothyroxine 50 mcg tablet See Rx Instructions .ROUTE .COMPLEX Qty: 90 3RF Dose Instruction: TAKE 1 TABLET BY MOUTH DAILY ON AN EMPTY STOMACH 30 MINUTES BEFORE EATING Rx Instructions: TAKE 1 TABLET BY MOUTH DAILY ON AN EMPTY STOMACH 30 MINUTES BEFORE EATING bisoprolol-hydrochlorothiazide 2.5-6.25 mg tablet See Rx Instructions .ROUTE .COMPLEX Qty: 90 3RF Dose Instruction: TAKE 1 TABLET BY MOUTH DAILY Rx Instructions: TAKE 1 TABLET BY MOUTH DAILY ibuprofen [IBU] 400 mg tablet 400 mg PO Q6-8H PRN (Reason: pain) Follow up/Referrals: Cari Rea, COLLE[facility] ADMISSIONS COUNSELOR-[facility] [Primary Care Provider, Family Practice] Diet/Activity/Treatments Diet: Regular Visit Report/Discharge Packet Stand Alone Forms: Patient Portal/API, Stroke Signs & Symptoms Discharge Data Primary Care Provider: Cari Rea VTE Deep Vein Thrombosis/Pulmonary Embolism Present on Admission: No
[2025-10-02 08:24] VITALS: BP 156/88
[2025-10-02] MEDS: AMOXICILLIN/CLAV 875/125 MG 1 TAB PO (08:24)
[2025-10-02] MEDS: POTASSIUM CHLORIDE 20 MEQ TAB 40 MEQ PO ×2 (08:25→12:17)
[2025-10-02] MEDS: INFLUENZA HD VACCINE 0.5 ML SYRINGE IM (09:49)
--- NOTE | 2025-10-02 11:35 | PT-IP ANOTE ---
checked on pt this morning but refused PT. stated that she is tired and has been up and going to the toilet. agreed to do PT in the afternoon.
[2025-10-02 12:00] VITALS: BP 153/93; PULSE 68; RESP 16; TEMP 36.3; O2SAT 98
--- NOTE | 2025-10-02 13:05 | CM.DPNOTE ---
DCP Continued: Reviewed EMR and team rounds for pt?s medical status. Per hospitalist, pt to be monitored for potassium levels after replacement therapy; could discharge home today if levels are stabilized. SOCK LINING STITCHER provided [employer] information to pt and daughter for bedside commode at home. Plan: Anticipating discharge home with daughter to transport on 10/02 or when medically cleared. CM Team will continue to follow for coordination of discharge plans. AALIYAH SwainSW
--- NOTE | 2025-10-02 14:25 | PT.IPTN ---
Current Diagnoses Ileus, unspecified (09/26/25) Urinary tract infection, site not specified (09/26/25) Generalized abdominal pain (09/26/25) Physical Therapy Treatment Note M2 PT-IP Current Condition Start: 09/29/25 12:24 Freq: NEEDED Status: Active Protocol: Document 09/29/25 10:25 AB (Rec: 09/29/25 12:37 AB Desktop) Physical Therapy Current Condition Current Condition Evaluation Date 09/29/25 Treatment Diagnosis SBO; UTI; difficulty in walking Onset Date 09/26/25 M3 PT-IP Subjective Start: 09/29/25 12:24 Freq: NEEDED Status: Active Protocol: Document 10/02/25 14:25 AB (Rec: 10/02/25 17:21 AB [id number]) Subjective Physical Therapy Visit Type Type Treatment Note Visit Start Time 14:25 Visit Stop Time 15:10 Number of MANUFACTURING AREA MANAGER Visits 0 Physical Therapy Visit Comments Patient Comments agreeable to do PT M4 PT-IP Mobility and Gait Start: 09/29/25 12:24 Freq: NEEDED Status: Active Protocol: Document 10/02/25 14:25 AB (Rec: 10/02/25 17:21 AB [id number]) PT-Bed Mobility Assessment Supine to Sit Supine to Sit Standby Assistance PT-Transfer Assessment Sit to and From Stand Sit to and from Standby Assistance,1 Person Assistance,Use of Upper Stand Extremities Equipment Transfer Assistive Gait Belt,4 Wheeled Walker Device Orthotic/Prosthetic No Devices or Brace: Comments Mobility Comments pt in bed and agreeable to do PT. daughter in room. pt completed supine to sit SBA. sit to stand SBA and ambulated using 4WW ~ 150 ft SBA to occasional CGA and cues for safety. pt requested to go back to bed. sit to supine SBA. positioned pt in bed. call light and table placed within reach. informed pt regarding assistance at home and HHPT. daughter made aware and stated that pt's son will be there for the first day and she and other daughter will help as well. Gait Assessment Gait Gait Assistance Standby Assistance,Contact Guard Assist Required: Distance (Feet) 150 Able to Maintain Yes Weight Bearing Status During Gait Assistive Devices Assistive Device Gait Belt,4 Wheeled Walker Orthotic/Prosthetic No Devices or Brace: Gait Deviations General Gait Pattern Decreased Stride Length,Decreased Feet Clearance Factors Limiting Gait Function Factors Limiting Decreased Activity Tolerance,Decreased Strength,Limited Gait Function Range of Motion,Poor Balance,Poor Safety Awareness M5 PT-IP Objective Assessments Start: 09/29/25 12:24 Freq: NEEDED Status: Active Protocol: Document 09/29/25 10:25 AB (Rec: 09/29/25 12:37 AB Desktop) Orientation Orientation/Cognition Level of Alertness Alert Orientation Name,Place,Situation Language Function Hard of Hearing Ability Safety Awareness Decreased Safety Awareness Memory Description No Deficits Noted Gross Range of Motion Lower Extremity ROM Assessment Within Functional Limits Strength Lower Extremity Strength Hip 4-/5 Knee 4-/5 Muscle Tone Muscle Tone WNL Yes M6 PT-IP Treatment Start: 09/29/25 12:24 Freq: NEEDED Status: Active Protocol: Document 10/02/25 14:25 AB (Rec: 10/02/25 17:21 AB [id number]) Physical Therapy Treatment Education Education Provided Safety M7 PT-IP Assessment and Plan Start: 09/29/25 12:24 Freq: NEEDED Status: Active Protocol: Document 10/02/25 14:25 AB (Rec: 10/02/25 17:21 AB [id number]) PT Summary Assessment and Plan Potential Rehabilitation Good Potential Summary Impairments Pain,ROM,Strength,Balance,Coordination,Sensation,Tone, Cognition,Bed Mobility,Transfers,Gait,Activity Tolerance Progress Towards Slow Progress due to Activity Tolerance Goals Assessment Summary pt improving with mobility and was able to ambulate using 4WW ~ 150 ft SBA to occasional CGA. pt plans to go home and will have her family to assist her. pt also will benefit from HHPT. Goals Bed Mobility Goal Independent Transfer Goal Independent,Front Wheeled Walker Gait Goal Independent,Front Wheel Walker Gait Distance 100 Other Goals improve ambulation using 4WW or LRAD ~ 200 ft SBA Days to Meet Goals 10 Frequency of Treatment Frequency Of Once a Day Treatment Treatment Plan Physical Therapy Bed Mobility Training,Transfer Training,Gait Training, Treatment Plan Therapeutic Exercise,Balance Retraining,Discharge Planning,Hot or Cold Pack,Neuromuscular Re-ed, Coordination Retraining,Manual Therapy Recommendations To Nursing Amount of Assist 1 Person Assist Needed Discharge Recommendations PT Discharge Home with Assistance,Home Health Recommendations Transportation Needs Private Vehicle at Discharge - PT assist 1
[2025-10-02 16:00] VITALS: BP 173/71; PULSE 73; RESP 18; TEMP 36.8; O2SAT 97
[2025-10-02 16:55] LABS: HEMOLYSIS < 15 (0-50); Potassium 3.9 mmol/L (3.4-5.1)
--- NOTE | 2025-10-02 18:05 | PC.NURSE ---
Pt is dressed and ready for discharge home with Daughter. IV has been removed. Went over d/c instructions with Pt and Daughter-discussed d/c meds, time of last dose, reviewed stroke education, encouraged slow advancement of hard to digest foods and plenty of fluids to prevent constipation or dehdyration and follow up with her PCP as scheduled. Pt denied further questions and was taken out via w/c by VOCATIONAL REHABILITATION COUNSELOR to POV with Daughter Tory and all belongings.
== END 2025-10-02 18:08 | disposition home or self-care (01) | DRG 388 ==
LOC: ED 06:22 → AC 06:46
PROVIDERS: Family Medicine; Internal Medicine; Admitting Provider Internal Medicine; Emergency Provider Family Medicine; PCP Nurse Practitioner Family; Referring Provider Family Medicine; Visit Provider Internal Medicine
DX: K56.7 Ileus, unspecified (principal); J69.0 Pneumonitis due to inhalation of food and vomit; N39.0 Urinary tract infection, site not specified; Z16.24 Resistance to multiple antibiotics; I10 Essential (primary) hypertension; E03.9 Hypothyroidism, unspecified; E86.0 Dehydration; B96.20 Unspecified Escherichia coli [E. coli] as the cause of diseases classified elsewhere; E87.6 Hypokalemia; Z79.890 Hormone replacement therapy
CPT/HCPCS: 36415; 71045; 74018; 74019; 74176; 80048; 80053; 81001; 82962; 83690; 83735; 84132; 85025; 87040; 87077; 87086; 87186; 90471; 90662; 93005; 96374; 96375; 96376; 97116; 97162; 97530; 99283; 99284; J0131; J0696; J1171; J2272; J2405; J2543; J2765; J7030; J7040; J7042; J7050

== ENCOUNTER → 2025-11-09 11:44 | Outpatient (CLI) | payer MEDICARE, BC, SELFPAY ==
[2025-11-09 12:42] LABS: Bilirubin Urine UA NEGATIVE (NEGATIVE); Color Urine UA YELLOW; Glucose Urine UA NEGATIVE (Negative); Ketones Urine UA NEGATIVE (NEGATIVE); Leukocyte Esterase Urine UA 2+ (NEGATIVE); Nitrite Urine UA NEGATIVE (Negative); Occult Blood Urine UA TRACE-INTACT (Negative); Protein Urine UA 1+ (Negative); Specific Gravity Urine UA 1.025 (1.000-1.035); Urobilinogen Urine UA 0.2 E.U./dL (0.2)
[2025-11-09 12:44] LABS: Appearance Urine UA CLOUDY; pH Urine UA 6.0 (4.5-8.0)
[2025-11-09 12:51] LABS: Culture Indicated Urine Specimen Cultured
== END ==
PROVIDERS: PCP Nurse Practitioner Family; Referring Provider Nurse Practitioner Family; Visit Provider Nurse Practitioner Family
DX: R30.0 Dysuria (principal)
CPT/HCPCS: 81001; 87077; 87086